=== PATIENT | female | born 1960 | race Caucasian/White ===

== ENCOUNTER 2021-04-11 09:01 | Outpatient (CLI) | payer OTHER, SELFPAY ==
--- NOTE | ~2021-04-11 | US_ITS ---
EXAMINATION: US abdomen complete DATE: 04/11/2021 10:29 INDICATION: Abdominal pain TECHNIQUE: Multiple grayscale and Doppler ultrasound images of the abdomen were obtained. COMPARISON: None available FINDINGS: The head and body of the pancreas are normal. The pancreatic tail is obscured by bowel gas. The liver is normal with normal echogenicity and echotexture. No surface nodularity. Normal hepatope santiago flow in the main portal vein. The gallbladder is normal with no abnormal wall thickening, pericho lecystic fluid or stones. The normal common bile duct measures 4 mm. There was no sonographic Batista sign. The visualized portions of the aorta and inferior vena cava are normal. The right kidney measures 10.2 x 6.1 x 4.4 cm. The left kidney measures 11.1 x 4.2 x 4.8 cm. The kidn eys demonstrate normal parenchymal echogenicity. There is no hydronephrosis. The spleen is normal in appearance and measures 9.4 cm. IMPRESSION: 1. No sonographic correlate for the patient's symptoms. Reviewed, dictated and finalized at location B.
== END 2021-04-11 09:02 | disposition home or self-care (01) ==
PROVIDERS: PCP Internal Medicine; Visit Provider Internal Medicine
DX: R10.9 Unspecified abdominal pain (principal)
CPT/HCPCS: 76700

== ENCOUNTER → 2021-04-30 09:06 | Outpatient (CLI) | payer OTHER, SELFPAY ==
--- NOTE | ~2021-04-30 | CT_ITS ---
EXAMINATION: CT abdomen pelvis wo con DATE: 04/30/2021 09:27 INDICATION: Right lower quadrant abdominal pain TECHNIQUE: Computed tomography (CT) of the abdomen and pelvis was performed without intravenous contr ast. Automated exposure control and iterative reconstruction technique were employed. Exam dose: 727 .19 mGy-cm total exam DLP. COMPARISON: 04/11/2021 complete abdominal ultrasound examination FINDINGS: There is mild discoid atelectasis or scarring in the base of the left lower lobe. No consol idation at the lung bases. Heart size is within normal range. No pericardial or pleural effusion. The liver, gallbladder, bile ducts, spleen, pancreas, pancreatic duct, and adrenal glands and kidneys are unremarkable. There is a 5.5 mm hyperdense exophytic cyst at the upper pole of the left kidney l ow-attenuation up to 94 Hounsfield units, benign. No urinary tract calculus or hydroureteronephrosis. Normal caliber of the abdominal aorta. No intraperitoneal or retroperitoneal or pelvic mass lesion or adenopathy or ascites. Diverticulosis of left and right colon; no CT evidence of diverticulitis. Normal appendix. No bowel o bstruction, bowel wall thickening, pneumatosis or intraperitoneal free air. The uterus, adnexa and evacuated urinary bladder appear unremarkable. Grade 1 anterolisthesis at L4-5 due to degenerative change at the apophyseal joints. Moderately sever e degenerative disc disease at L5-S1. Degenerative changes are noted in the thoracic and lumbar spine. IMPRESSION: Normal appendix Diverticulosis of the colon; no CT evidence of diverticulitis Reviewed, dictated and finalized at Location A. Reviewed, dictated and finalized at location A.
== END ==
PROVIDERS: PCP Internal Medicine; Visit Provider Internal Medicine
DX: R10.9 Unspecified abdominal pain (principal); K57.30 Diverticulosis of large intestine without perforation or abscess without bleeding
CPT/HCPCS: 74176

== ENCOUNTER 2021-07-08 01:17 | Day surgery (SDC) | payer OTHER, SELFPAY ==
[2021-06-27 14:28] VITALS: BMI 29.4
[2021-07-08 06:53] VITALS: BP 147/96; PULSE 57; RESP 18; TEMP 36.6; O2SAT 96
[2021-07-08 06:55] VITALS: BMI 28.5
[2021-07-08] MEDS: LACTATED RINGERS 1,000 ML 150 ML IV CONT (07:02)
--- NOTE | 2021-07-08 07:17 | WPDANESEPPF ---
Anes - Initial Pre Proc Eval Procedure: Operation Date: 07/08/21 08:15 Proposed Procedures p Colonoscopy - Zan Garland MD Date/Time: 07/08/21 07:17 Surgeon: Zan Garland MD Pre Op Diagnosis: Right abdominal pain Patient Data Age: 60 Gender: F Height: 1.57 m Weight: 70.7 kg Last Vital Signs Temp 36.6 C 07/08/21 06:53 Pulse 57 L 07/08/21 06:53 Resp 18 07/08/21 06:53 BP 147/96 H 07/08/21 06:53 Pulse Ox 96 07/08/21 06:53 Allergies Allergy/AdvReac Type Severity Reaction Status Date / Time meperidine Allergy Mild Nausea and Verified 07/08/21 06:50 Vomiting Home Medications Medication Instructions Recorded Confirmed Type atorvastatin 10 mg tablet 10 mg PO DAILY 06/14/20 07/04/21 History lactobacillus combination no.9 4 4,000 mmu cells PO DAILY 06/14/20 07/04/21 History billion cell capsule multivitamin,[id number] 1 tablet PO DAILY 06/14/20 07/04/21 History alprazolam 0.5 mg tablet 0.25 mg PO DAILY PRN 12/14/20 07/04/21 History omega-3 fatty acids 1,000 mg 1,000 mg PO DAILY 12/14/20 07/04/21 History capsule fluoxetine 20 mg capsule 20 mg PO DAILY 05/03/21 07/04/21 History pantoprazole 40 mg tablet,delayed 40 mg PO QAM #90 tablet 06/10/21 07/04/21 Rx release hydrochlorothiazide 12.5 mg tablet 12.5 mg PO DAILY #90 tablet 07/04/21 07/08/21 Rx metoprolol tartrate 50 mg tablet 25 mg PO BID #90 tablet 07/04/21 07/08/21 Rx Patient hx anesthesia problems: none Family hx anesthesia problems: none Results Review: All pre-operative results and documents have been reviewed as part of the pre-operative evaluation. [facility] Past Medical History Medical History History of Clostridioides difficile colitis Hyperlipidemia Hypertension Surgical History Surgical History History of delivery History of reduction mammoplasty Family History Family History Mother Heart disease Father , Heart and Stroke No problems noted. Grandparent Heart disease Grandparent , Black Lung No problems noted. Social History Social History (Updated 07/04/21 @ 07:04 by Leonor Wood MA) Smoking packs per day: 1 Smoking cigarettes per day: 20.0 Years smoked: 20 Smoking pack-years: 20.00 Tobacco type: cigarettes Second hand tobacco smoke exposure: Yes Smoking end date: 10/30/16 Alcohol intake: current Drinks per week: 2 Alcohol use details: Socially- wine Substance use: never Living arrangements: alone Spiritual care concerns: No Anes - Eval Final PreProcedure Day of Procedure 07/08/21 07:17 Patient weight: overweight Heart: regular rate and rhythm Lungs: clear to auscultation Airway: Mallampati scale class II Neurological: alert and oriented Last oral intake: >/= 8 hours ASA classification: III Emergent: no Anesthetic plan: proceed Anesthesia type and monitoring: general GIVS and standard monitoring Results Review: All pre-operative results and documents have been reviewed as part of the pre-operative evaluation. Informed Consent: The patient's anesthetic plan and its attendant risks and benefits were discussed with the patient/family/POA. Questions were solicited and answers provided to the satisfaction of the patient/family/POA.
--- NOTE | 2021-07-08 08:00 | PM.HPGS ---
History of Present Illness History of Present Illness Consent: Risks, benefits, and alternatives have been discussed and questions answered. Patient agrees to proceed with procedure. Chief complaint: Right abdominal pain Narrative: Miguel Chaudhari is a 60 year old female with intermittent right sided abdominal pain and loose stool, last colonoscopy 2014 Review of Systems Constitutional: Constitutional: Denies headache(s) and Denies weakness Eyes: Eyes: Denies blurry vision ENT: Reports Normal hearing present, Denies headache(s) and Denies neck pain Cardiovascular: Cardiovascular: Denies chest pain and Denies dyspnea Respiratory: Respiratory: Denies dyspnea Gastrointestinal: Gastrointestinal: Reports no additional gastrointestinal complaints Genitourinary: Genitourinary: Denies dysuria Musculoskeletal: Musculoskeletal: Denies neck pain Integumentary/Breasts: Skin/Breast: Denies dry skin Neurologic: Reports Normal hearing present, Denies headache(s) and Denies weakness Psychiatric: Psychiatric: Denies anxiety Endocrine: Endocrine: Denies change in body appearance Hematologic/Lymphatic: Hematologic/Lymphatic: Denies easy bleeding Allergic/Immunologic: Allergic/Immunologic: Denies urticaria PMFSH Past Medical History Medical History History of Clostridioides difficile colitis Hyperlipidemia Hypertension Surgical History Surgical History History of delivery History of reduction mammoplasty Family History Family History Mother Heart disease Father , Heart and Stroke No problems noted. Grandparent Heart disease Grandparent , Black Lung No problems noted. Social History Social History (Updated 07/04/21 @ 07:04 by Leonor Wood MA) Smoking packs per day: 1 Smoking cigarettes per day: 20.0 Years smoked: 20 Smoking pack-years: 20.00 Tobacco type: cigarettes Second hand tobacco smoke exposure: Yes Smoking end date: 10/30/16 Alcohol intake: current Drinks per week: 2 Alcohol use details: Socially- wine Substance use: never Living arrangements: alone Spiritual care concerns: No Meds Home Medications and Allergies Home Medications Medication Instructions Recorded Confirmed Type atorvastatin 10 mg tablet 10 mg PO DAILY 06/14/20 07/04/21 History lactobacillus combination no.9 4 4,000 mmu cells PO DAILY 06/14/20 07/04/21 History billion cell capsule multivitamin,[id number] 1 tablet PO DAILY 06/14/20 07/04/21 History alprazolam 0.5 mg tablet 0.25 mg PO DAILY PRN 12/14/20 07/04/21 History omega-3 fatty acids 1,000 mg 1,000 mg PO DAILY 12/14/20 07/04/21 History capsule fluoxetine 20 mg capsule 20 mg PO DAILY 05/03/21 07/04/21 History pantoprazole 40 mg tablet,delayed 40 mg PO QAM #90 tablet 06/10/21 07/04/21 Rx release hydrochlorothiazide 12.5 mg tablet 12.5 mg PO DAILY #90 tablet 07/04/21 07/08/21 Rx metoprolol tartrate 50 mg tablet 25 mg PO BID #90 tablet 07/04/21 07/08/21 Rx Allergies Allergy/AdvReac Type Severity Reaction Status Date / Time meperidine Allergy Mild Nausea and Verified 07/08/21 06:50 Vomiting Vital Signs Vital Signs - 24 hr 07/08/21 06:53 Temperature 97.9 F Pulse Rate 57 L Respiratory Rate 18 Blood Pressure 147/96 H Pulse Oximetry 96 Exam Const: General: comfortable and no acute distress HENMT: General nose exam: Normal nares present Eyes: General: appearance normal, both eyes and all related structures Neck: Neck: no JVD Resp: Auscultation: clear to auscultation bilaterally Cardio: Rate: regular rate Rhythm: regular rhythm GI: Inspection: non-distended GI Palp: Yes Soft to palpation Skin: General skin exam: normal color Neuro: General: gait normal Speech: normal
[2021-07-08 08:28] VITALS: BP 98/65; PULSE 51; RESP 15; O2SAT 96
[2021-07-08 08:38] VITALS: BP 128/88; PULSE 47; RESP 18; O2SAT 98
[2021-07-08 08:48] VITALS: BP 139/99; PULSE 56; RESP 23; O2SAT 94
== END 2021-07-08 09:02 | disposition home or self-care (01) ==
PROVIDERS: PCP Internal Medicine; Visit Provider Internal Medicine Gastroenterology
PROC: 0DJD8ZZ Inspection of Lower Intestinal Tract, Via Natural or Artificial Opening Endoscopic (ICD-10-PCS; CPT 45378; principal; 2021-07-08 08:15)
DX: R10.31 Right lower quadrant pain (principal); K57.30 Diverticulosis of large intestine without perforation or abscess without bleeding; D12.3 Benign neoplasm of transverse colon; K63.5 Polyp of colon; K64.8 Other hemorrhoids; Z87.19 Personal history of other diseases of the digestive system; I10 Essential (primary) hypertension; E78.5 Hyperlipidemia, unspecified; Z87.891 Personal history of nicotine dependence
CPT/HCPCS: 45385; 45380; 88305; J2704; J7120

== ENCOUNTER 2022-01-24 08:27 | Outpatient (CLI) | payer BC, SELFPAY ==
--- NOTE | 2022-01-24 08:42 | EST_ITS ---
Patient Info Name: Miguel Chaudhari Age: 61 years : 1960 Gender: Female Ht: 62 in Wt: 160 lbs BSA: 1.81 m2 HR: 55 bpm BP: 122 / 80 mmHg Technical Quality: Good Exam Date: 01/24/2022 9:19 AM Exam Location: [facility] Patient Status: Outpatient Admit Date: 01/24/2022 Staff Ordering Physician: Basim Yip DO Energy Sales Broker: Sagrario Turcios RCS Attending Provider: Basim Yip DO Exercise Technologist: Jenniffer Franklin RDCS Exam Type: CA stress echo Study Info Indications R07.89 - Other chest pain Treadmill exercise stress echocardiogram is performed. Summary 1. 1. Negative Binh exercise stress test for ischemic ST changes by ECG criteria. 2. 2. Good functional capacity, achieving 11 METs of workload. 3. 3. Appropriate HR response to exercise. 4. 4. Appropriate HR recovery at 1 minute post exercise. 5. 5. Negative stress echocardiogram for ischemia by wall motion analysis. 6. 6. Patient informed of the above results. Stress Echo Findings Left Ventricle Appropriate increase in LV endocardial thickening with systole. Appropriate augmentation of contractility with systole. No wall motion abnormality. Left Ventricle Normal LV systolic function, no wall motion abnormality. Protocol: Binh Stress ECG Details Stage: REST Duration (min): 1 min : 23 sec Speed (mph): 0.0 Grade (%): 0 HR (bpm): 55 SBP (mmHg): 122 DBP (mmHg): 80 METS: --- Stage: REST Duration (min): 17 min : 39 sec Speed (mph): 0.0 Grade (%): 0 HR (bpm): 58 SBP (mmHg): 122 DBP (mmHg): 80 METS: --- Stage: STAGE 1 Duration (min): 1 min : 0 sec Speed (mph): 1.7 Grade (%): 10 HR (bpm): 85 SBP (mmHg): 122 DBP (mmHg): 80 METS: --- Stage: STAGE 1 Duration (min): 2 min : 0 sec Speed (mph): 1.7 Grade (%): 10 HR (bpm): 94 SBP (mmHg): 122 DBP (mmHg): 80 METS: --- Stage: STAGE 1 Duration (min): 3 min : 0 sec Speed (mph): 1.7 Grade (%): 10 HR (bpm): 96 SBP (mmHg): 157 DBP (mmHg): 74 METS: --- Stage: STAGE 2 Duration (min): 1 min : 0 sec Speed (mph): 2.5 Grade (%): 12 HR (bpm): 95 SBP (mmHg): 157 DBP (mmHg): 74 METS: --- Stage: STAGE 2 Duration (min): 2 min : 0 sec Speed (mph): 2.5 Grade (%): 12 HR (bpm): 92 SBP (mmHg): 157 DBP (mmHg): 74 METS: --- Stage: STAGE 2 Duration (min): 3 min : 0 sec Speed (mph): 2.5 Grade (%): 12 HR (bpm): 103 SBP (mmHg): 184 DBP (mmHg): 79 METS: --- Stage: STAGE 3 Duration (min): 1 min : 0 sec Speed (mph): 3.4 Grade (%): 14 HR (bpm): 114 SBP (mmHg): 133 DBP (mmHg): 81 METS: --- Stage: STAGE 3 Duration (min): 2 min : 0 sec Speed (mph): 3.4 Grade (%): 14 HR (bpm): 116 SBP (mmHg): 133 DBP (mmHg): 81 METS: --- Stage: STAGE 3 Duration (min): 3 min : 0 sec Speed (mph): 3.4 Grade (%): 14 HR (bpm): 116
== END 2022-01-24 08:28 | disposition home or self-care (01) ==
PROVIDERS: PCP Internal Medicine; Visit Provider Internal Medicine
DX: R07.9 Chest pain, unspecified (principal); R68.84 Jaw pain
CPT/HCPCS: 93351

== ENCOUNTER 2022-02-05 05:37 | Outpatient (CLI) | payer BC, SELFPAY ==
--- NOTE | 2022-02-10 16:03 | WPDHOMESLEEP ---
Sleep Study - Home Unattended Date of Study: 02/05/22 Ordering Provider: Basim Yip DO Interpreting Provider: Ina Valdez DO Home Sleep Study Type: Apnea Link Air Height: 1.57 m Weight: 72.575 kg Body Mass Index: 29.2 Neck Circumference (inches): 14 [place]: 10 Reason for Sleep Study Snoring, Multiple nighttime awakenings Sleep History The patient is a 61-year-old female with IBS, GERD, hypertension, hyperlipidemia, stress, and history of tobacco abuse that had a sleep study ordered by her primary care for evaluation of sleep apnea. 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 She occasionally awakens from sleep short of breath. She occasionally awakens at night with heartburn, belching or cough. She constantly snores and it is frequently loud enough that others complain. She frequently has trouble sleeping when she has a cold. She rarely wakes up gasping for air throughout the night. She denies having breathing problems at night observed by herself or others. She occasionally sweats excessively at night. She occasionally has heart palpitations or irregular heartbeats during the night. She denies falling asleep during the day and while driving. She denies cataplexy and hypnagogic / hypnopompic hallucinations. She rarely feels unable to move while waking up or falling asleep. She frequently has nightmares. She frequently remembers her dreams. She frequently has thoughts racing through her mind. She rarely feels sad or depressed. She occasionally has anxiety. She rarely has muscular tension. She occasionally notices parts of her body jerk. She occasionally kicks during the night. She occasionally has crawling and aching feelings in her legs as well as leg pain during the night. She frequently grinds her teeth during sleep. She rarely is bothered by pain during the day and rarely awakened by pain during the night. She occasionally wakes up feeling stiff in the morning. She occasionally wakes up with sore or achy muscles. She occasionally wakes up with pain in the neck, spine and other joints. She goes to bed at 11:00 p.m. on weekdays and at midnight and awakens. It takes her 15-30 minutes to fall asleep. She wakes up 2-3 times throughout the night to urinate. She is able to fall back asleep within 5-10 minutes. She wakes up between 7 and 7:30 a.m. on weekdays and between 9 and 10:00 a.m. on the weekends. She typically gets 8-12 hours of sleep per. She will stay in bed for 5-10 minutes after waking up in the morning. She currently lives alone. She does not consume any caffeinated beverages within 2 hours of bedtime. She does not engage in physical exercise before bedtime. She will watch television before falling asleep. She will take naps in the afternoon or the evening but they are not refreshing. She will drink caffeinated beverages throughout the day. She does drink alcohol socially. She quit smoking cigarettes in 2017. She denies recreational drug use. [facility] Past Medical History Medical History History of Clostridioides difficile colitis Hyperlipidemia Hypertension Surgical History Surgical History History of delivery History of reduction mammoplasty Family History Family History Mother Heart disease Father , Heart and Stroke No problems noted. Grandparent Heart disease Grandparent , Black Lung No problems noted. Social History Social History Smoking packs per day: 1 Smoking cigarettes per day: 20.0 Years smoked: 20 Smoking pack-years: 20.00 Smoking status: Former smoker Tobacco type: cigarettes Second hand tobacco smoke exposure: No Smoking end date: 10/30/16 Alcohol intake: former
[2022-02-10 16:14] VITALS: BMI 29.2
== END 2022-02-06 13:08 | disposition home or self-care (01) ==
LOC: ANHCSM 05:37
PROVIDERS: PCP Internal Medicine; Visit Provider Internal Medicine
DX: G47.39 Other sleep apnea (principal)
CPT/HCPCS: 95806

== ENCOUNTER 2022-02-28 07:48 | Outpatient (CLI) | payer BC, SELFPAY ==
--- NOTE | 2022-03-11 08:55 | WPDSLEEPSTUD ---
Sleep Study Date of Study: 02/28/22 Ordering Provider: Basim Yip DO Interpreting Physician: Ai Vargas MD Sleep Study Type: CPAP Titration Height: 1.57 m Weight: 72.575 kg Body Mass Index: 29.2 Neck Circumference (inches): 14.5 [place]: 10 Reason for Sleep Study 02/05/2022 Home Sleep Test using ApneaLink with an overall AHI of 33.6 and a central apnea index of 11.5.? This is consistent with severe mixed sleep apnea. Sleep History Miguel Chaudhari is a 61-year-old female with IBS, GERD, hypertension, hyperlipidemia, stress, and history of tobacco abuse with a positive home sleep test who returns for a CPAP titration. She occasionally awakens from sleep short of breath.? She occasionally awakens at night with heartburn, belching or cough.? She constantly snores, frequently loud enough that others complain.? She frequently has trouble sleeping when she has a cold.? She rarely wakes up gasping for air throughout the night.? She denies having breathing problems at night observed by herself or others.? She occasionally sweats excessively at night.? She occasionally has heart palpitations or irregular heartbeats during the night.? She denies falling asleep during the day and while driving.? She denies muscle weakness with strong emotion or vivid dreams on waking or falling asleep. She does not feel paralyzed on waking or falling asleep.? She frequently has nightmares.? She frequently remembers her dreams.? She frequently has thoughts racing through her mind.? She rarely feels sad orpressed.? She occasionally has anxiety.? She rarely has muscular tension.??She occasionally notices parts of her body jerk.? She occasionally kicks during the night.? She occasionally has crawling and aching feelings in her legs as well as leg pain during the night.? She frequently grinds her teeth during sleep.? She rarely is bothered by pain during the day and rarely awakened by pain during the night.? She occasionally wakes up feeling stiff in the morning.? She occasionally wakes up with sore or achy muscles.? She occasionally wakes up with pain in the neck, spine and other joints.? Normal bedtime is 11:00 p.m. on weekdays and midnight, falling asleep within 15-30 minutes, waking 2-3 times throughout the night to urinate.? She is able to return to sleep within 5-10 minutes.? She wakes up between 7 and 7:30 a.m. on weekdays and between 9 and 10:00 a.m. on the weekends.? She typically gets 8-12 hours of sleep on an average night. She takes naps in the afternoon or the evening but they are not refreshing.? Habits: Former smoker, quit tobacco in 2017. Caffeine: several drinks throughout the day.? She does drink alcohol socially.? She denies recreational drug use. [facility] Past Medical History Medical History History of Clostridioides difficile colitis Hyperlipidemia Hypertension Surgical History Surgical History History of delivery History of reduction mammoplasty Family History Family History Mother Heart disease Father , Heart and Stroke No problems noted. Grandparent Heart disease Grandparent , Black Lung No problems noted. Social History Social History Smoking packs per day: 1 Smoking cigarettes per day: 20.0 Years smoked: 20 Smoking pack-years: 20.00 Smoking status: Former smoker Tobacco type: cigarettes Second hand tobacco smoke exposure: No Smoking end date: 10/30/16 Alcohol intake: current Drinks per week: 4 Alcohol use details: Socially- wine Substance use: former Substance use type: marijuana Last use: 6 MONTHS Spiritual care concerns: No Medications Home Medications Medication Instructions Recorded Confirmed Type lac
[2022-03-11 11:39] VITALS: BMI 29.2
--- NOTE | 2022-09-11 16:53 | SLEEP ---
pt is having issues w machine and RLS
== END 2022-03-01 06:14 | disposition home or self-care (01) ==
LOC: ANHCSM 07:49
PROVIDERS: PCP Internal Medicine; Visit Provider Internal Medicine
DX: G47.39 Other sleep apnea (principal); G25.81 Restless legs syndrome; G47.61 Periodic limb movement disorder
CPT/HCPCS: 95811

== ENCOUNTER 2022-03-14 13:42 | Outpatient (CLI) | payer BC, SELFPAY ==
--- NOTE | 2022-03-14 13:54 | ECHO_ITS ---
Patient Info Name: Miguel Chaudhari Age: 61 years : 1960 Gender: Female Ht: 62 in Wt: 160 lbs BSA: 1.81 m2 HR: 53 bpm BP: 168 / 104 mmHg Heart Rhythm: Sinus Rhythm Technical Quality: Good Exam Date: 03/14/2022 2:04 PM Exam Location: [facility] Patient Status: Outpatient Admit Date: 03/14/2022 Staff Ordering Physician: Basim Yip DO Non Destructive Evaluation Manager: Pauline Bhakta RDCS Attending Provider: Basim Yip DO Referring Physician: Theodora BENAVIDES; Exam Type: CA echo doppler color flow Study Info Indications G47.31 - PRIMARY CENTRAL SLEEP APNEA Complete two-dimensional, color flow and Doppler transthoracic echocardiogram is performed. Summary 1. Complete two-dimensional, color flow and Doppler transthoracic echocardiogram is performed. 2. Left ventricular chamber dimension is normal. 3. Left ventricular systolic function is normal, estimated at 60-65%. 4. The left ventricular diastolic function is grade II diastolic dysfunction. 5. E/e' 13 is mildly elevated. Left Ventricle E/e' 13 is mildly elevated. Left ventricular chamber dimension is normal. Left ventricular systolic function is normal, estimated at 60-65%. The left ventricular diastolic function is grade II diastolic dysfunction. Right Ventricle Right ventricular chamber dimension is normal. Right ventricular systolic function is normal. Left Atria Left atrial chamber dimension is normal. Right Atria Right atrial chamber dimension is normal. Aortic Valve The aortic valve is trileaflet. There is no aortic valve stenosis. There is no aortic valve regurgitation. Pulmonic Valve There is no pulmonic regurgitation. Mitral Valve There is no mitral valve stenosis. There is no mitral valve regurgitation. Tricuspid Valve There is no tricuspid valve regurgitation. Pericardium/Pleural There is no pericardial effusion. Inferior Vena Cava Normal inferior vena cava with >50% collapse upon inspiration consistent with normal right atrial pressure, 5 mmHg. Aorta The aortic root size at the sinus of Valsalva is normal. Left Ventricular Outflow Tract Name Value Normal LVOT 2D LVOT Diameter 1.6 cm LVOT Doppler LVOT Peak Gradient 3 mmHg LVOT Mean Gradient 2 mmHg LVOT VTI 24 cm LVOT VTI/AV VTI Ratio 0.7 LVOT Stroke Volume 50 ml LVOT CO 2.5 l/min LVOT CI 1.4 l/min/m2 Pulmonic Valve Name Value Normal RVOT Doppler RVOT Peak Gradient 1 mmHg PV Doppler PV Peak Gradient 2 mmHg Mitral Valve
== END 2022-03-14 13:43 | disposition home or self-care (01) ==
LOC: ANHCARD 13:43
PROVIDERS: PCP Internal Medicine; Visit Provider Internal Medicine
DX: G47.31 Primary central sleep apnea (principal)
CPT/HCPCS: 93306

== ENCOUNTER 2022-06-06 00:25 | Day surgery (SDC) | payer BC, SELFPAY ==
[2022-02-17 15:34] VITALS: BMI 28.4
[2022-05-22 14:22] VITALS: BMI 28.4
[2022-06-06 07:28] VITALS: BP 154/88; PULSE 56; RESP 18; TEMP 36.2; O2SAT 98; BMI 27.5
[2022-06-06] MEDS: LACTATED RINGERS 1,000 ML 150 ML IV CONT (07:50)
--- NOTE | 2022-06-06 08:25 | WPDANESEPPF ---
Anes - Initial Pre Proc Eval Procedure: Operation Date: 06/06/22 09:00 Proposed Procedures p Esophagogastroduodenoscopy - Zan Garland MD Date/Time: 06/06/22 08:25 Surgeon: Zan Garland MD Pre Op Diagnosis: GERD Patient Data Age: 61 Gender: F Height: 1.6 m Weight: 70.4 kg Last Vital Signs Temp 97.2 F L 06/06/22 07:28 Pulse 56 L 06/06/22 07:28 Resp 18 06/06/22 07:28 BP 154/88 H 06/06/22 07:28 Pulse Ox 98 06/06/22 07:28 O2 Del Method Room Air 06/06/22 07:28 Allergies Allergy/AdvReac Type Severity Reaction Status Date / Time meperidine Allergy Mild Nausea and Verified 06/06/22 07:40 Vomiting Home Medications Medication Instructions Recorded Confirmed Type lactobacillus combination no.9 4 4,000 mmu cells PO DAILY 06/14/20 06/06/22 History billion cell capsule (Adult 50 Plus Probiotic) multivitamin,[id number]-[id number] 1 tablet PO DAILY 06/14/20 06/06/22 History (Complete Multivitamin tablet) alprazolam 0.5 mg tablet 0.25 mg PO DAILY PRN Anxiety 12/14/20 06/06/22 History omega-3 fatty acids 1,000 mg 1,000 mg PO DAILY 12/14/20 06/06/22 History capsule (Fish Oil Concentrate) atorvastatin 10 mg tablet 10 mg PO DAILY #90 tabs 12/20/21 06/06/22 Rx metoprolol tartrate 50 mg tablet 25 mg PO BID #90 tabs 02/04/22 06/06/22 Rx (Lopressor) fluoxetine 20 mg capsule (Prozac) 20 mg PO DAILY #90 caps 03/03/22 06/06/22 Rx pantoprazole 40 mg tablet,delayed 40 mg PO QAM #90 tabs 04/21/22 06/06/22 Rx release ropinirole 0.5 mg tablet 0.5 mg PO QHS #30 tabs 05/26/22 06/06/22 Rx Patient hx anesthesia problems: none Family hx anesthesia problems: none Results Review: All pre-operative results and documents have been reviewed as part of the pre-operative evaluation. [facility] Past Medical History Medical History History of Clostridioides difficile colitis Hyperlipidemia Hypertension Surgical History Surgical History History of delivery History of reduction mammoplasty Family History Family History Mother Heart disease Father , Heart and Stroke No problems noted. Grandparent Heart disease Grandparent , Black Lung No problems noted. Social History Social History Smoking packs per day: 1 Smoking cigarettes per day: 20.0 Years smoked: 20 Smoking pack-years: 20.00 Smoking status: Former smoker Tobacco type: cigarettes Second hand tobacco smoke exposure: No Smoking end date: 10/30/16 Alcohol intake: current Drinks per week: 4 Alcohol use details: Socially- wine Substance use: former Substance use type: marijuana Last use: 6 MONTHS Living arrangements: alone Spiritual care concerns: No Anes - Eval Final PreProcedure Day of Procedure 06/06/22 08:25 Patient weight: normal Heart: regular rate and rhythm Lungs: clear to auscultation Airway: Mallampati scale class II Neurological: alert and oriented Last oral intake: >/= 8 hours ASA classification: III Emergent: no Anesthetic plan: proceed Anesthesia type and monitoring: general GIVS and standard monitoring Results Review: All pre-operative results and documents have been reviewed as part of the pre-operative evaluation. Informed Consent: The patient's anesthetic plan and its attendant risks and benefits were discussed with the patient/family/POA. Questions were solicited and answers provided to the satisfaction of the patient/family/POA.
--- NOTE | 2022-06-06 08:42 | PM.HPGS ---
History of Present Illness History of Present Illness Consent: Risks, benefits, and alternatives have been discussed and questions answered. Patient agrees to proceed with procedure. Chief complaint: GERD Narrative: Miguel Chaudhari is a 61 year old female with chronic GERD on pantoprazole that helps with symptoms, last egd over 10 years ago Review of Systems Constitutional: Constitutional: Denies headache(s) and Denies weakness Eyes: Eyes: Denies blurry vision ENT: Reports Normal hearing present, Denies headache(s) and Denies neck pain Cardiovascular: Cardiovascular: Denies chest pain and Denies dyspnea Respiratory: Respiratory: Denies dyspnea Gastrointestinal: Gastrointestinal: Reports no additional gastrointestinal complaints Genitourinary: Genitourinary: Denies dysuria Musculoskeletal: Musculoskeletal: Denies neck pain Integumentary/Breasts: Skin/Breast: Denies dry skin Neurologic: Reports Normal hearing present, Denies headache(s) and Denies weakness Psychiatric: Psychiatric: Denies anxiety Endocrine: Endocrine: Denies change in body appearance Hematologic/Lymphatic: Hematologic/Lymphatic: Denies easy bleeding Allergic/Immunologic: Allergic/Immunologic: Denies urticaria PMFSH Past Medical History Medical History History of Clostridioides difficile colitis Hyperlipidemia Hypertension Surgical History Surgical History History of delivery History of reduction mammoplasty Family History Family History Mother Heart disease Father , Heart and Stroke No problems noted. Grandparent Heart disease Grandparent , Black Lung No problems noted. Social History Social History Smoking packs per day: 1 Smoking cigarettes per day: 20.0 Years smoked: 20 Smoking pack-years: 20.00 Smoking status: Former smoker Tobacco type: cigarettes Second hand tobacco smoke exposure: No Smoking end date: 10/30/16 Alcohol intake: current Drinks per week: 4 Alcohol use details: Socially- wine Substance use: former Substance use type: marijuana Last use: 6 MONTHS Living arrangements: alone Spiritual care concerns: No Meds Home Medications and Allergies Home Medications Medication Instructions Recorded Confirmed Type lactobacillus combination no.9 4 4,000 mmu cells PO DAILY 06/14/20 06/06/22 History billion cell capsule (Adult 50 Plus Probiotic) multivitamin,xx-erur-xhiojfiw 1 tablet PO DAILY 06/14/20 06/06/22 History (Complete Multivitamin tablet) alprazolam 0.5 mg tablet 0.25 mg PO DAILY PRN Anxiety 12/14/20 06/06/22 History omega-3 fatty acids 1,000 mg 1,000 mg PO DAILY 12/14/20 06/06/22 History capsule (Fish Oil Concentrate) atorvastatin 10 mg tablet 10 mg PO DAILY #90 tabs 12/20/21 06/06/22 Rx metoprolol tartrate 50 mg tablet 25 mg PO BID #90 tabs 02/04/22 06/06/22 Rx (Lopressor) fluoxetine 20 mg capsule (Prozac) 20 mg PO DAILY #90 caps 03/03/22 06/06/22 Rx pantoprazole 40 mg tablet,delayed 40 mg PO QAM #90 tabs 04/21/22 06/06/22 Rx release ropinirole 0.5 mg tablet 0.5 mg PO QHS #30 tabs 05/26/22 06/06/22 Rx Allergies Allergy/AdvReac Type Severity Reaction Status Date / Time meperidine Allergy Mild Nausea and Verified 06/06/22 07:40 Vomiting Vital Signs Vital Signs - 24 hr 06/06/22 07:28 Temperature 97.2 F L Pulse Rate 56 L Respiratory Rate 18 Blood Pressure 154/88 H Pulse Oximetry 98 Oxygen Delivery Room Air Exam Const: General: comfortable and no acute distress HENMT: General nose exam: Normal nares present Eyes: General: appearance normal, both eyes and all related structures Neck: Neck: no JVD Resp: Auscultation: clear to a
[2022-06-06 09:01] VITALS: BP 118/84; PULSE 62; RESP 15; O2SAT 93
[2022-06-06 09:11] VITALS: BP 125/87; PULSE 60; RESP 18; O2SAT 92
[2022-06-06 09:21] VITALS: BP 147/84; PULSE 61; RESP 22; O2SAT 94
== END 2022-06-06 09:29 | disposition home or self-care (01) ==
PROVIDERS: PCP Internal Medicine; Visit Provider Internal Medicine Gastroenterology
PROC: 0DJ08ZZ Inspection of Upper Intestinal Tract, Via Natural or Artificial Opening Endoscopic (ICD-10-PCS; CPT 43235; principal; 2022-06-06 09:00)
DX: K21.9 Gastro-esophageal reflux disease without esophagitis (principal); R07.89 Other chest pain; K29.50 Unspecified chronic gastritis without bleeding; I10 Essential (primary) hypertension; E78.5 Hyperlipidemia, unspecified; Z87.891 Personal history of nicotine dependence; F12.90 Cannabis use, unspecified, uncomplicated
CPT/HCPCS: 43239; 88305; J2704; J7120

== ENCOUNTER 2022-08-05 16:56 | Outpatient (CLI) | payer BC, SELFPAY ==
--- NOTE | ~2022-08-05 | XR_ITS ---
XR humerus RT DATE: 08/05/2022 17:14 INDICATION: Right arm pain for 5 days TECHNIQUE: 2 views COMPARISON: None FINDINGS: No fracture, dislocation, periosteal reaction or bone destruction. IMPRESSION: Negative Reviewed, dictated and finalized at location A. IMPRESSION: Negative
--- NOTE | ~2022-08-05 | XR_ITS ---
XR shoulder RT min 2V DATE: 08/05/2022 17:13 INDICATION: Right shoulder pain for 5 days TECHNIQUE: 5 views COMPARISON: None FINDINGS: No fracture or dislocation, periosteal reaction or bone destruction. No abnormal right shou lder soft tissue calcification. Prominent uncovertebral joint spurring is noted at the right C5-6 uncovertebral joint. IMPRESSION: Prominent uncovertebral joint spurring at right C5-6 uncovertebral joint Reviewed, dictated and finalized at location A.
== END 2022-08-05 16:57 | disposition home or self-care (01) ==
LOC: ANHIMG 16:58
PROVIDERS: PCP Internal Medicine; Visit Provider Internal Medicine
DX: M79.603 Pain in arm, unspecified (principal); M25.519 Pain in unspecified shoulder
CPT/HCPCS: 73030; 73060

== ENCOUNTER → 2023-10-29 09:36 | Outpatient (CLI) | payer BC, SELFPAY ==
--- NOTE | ~2023-10-29 | XR_ITS ---
EXAMINATION: XR shoulder LT min 2V DATE: 10/29/2023 10:07 INDICATION: Unspecified fall, initial encounter. TECHNIQUE: 4 views of left shoulder were obtained. COMPARISON: None. FINDINGS: Bone alignment is normal. There is a nondisplaced fracture of greater tuberosity of proxima l left humerus. There is mild osteoarthritis of glenohumeral joint and acromioclavicular joint. IMPRESSION: 1. One-part fracture of proximal left humerus. 2. Mild polyarticular osteoarthritis. Reviewed, dictated and finalized at location [facility]
--- NOTE | ~2023-10-29 | XR_ITS ---
EXAMINATION: XR humerus LT DATE: 10/29/2023 10:07 INDICATION: Unspecified fall, initial encounter. TECHNIQUE: 2 views of left humerus were obtained. COMPARISON: None. FINDINGS: There is a nondisplaced fracture of greater tuberosity of proximal left humerus. There is m ild osteoarthritis of glenohumeral joint and acromioclavicular joint. IMPRESSION: 1. One-part fracture of proximal left humerus. 2. Mild polyarticular osteoarthritis. Reviewed, dictated and finalized at location E. [employer]
== END ==
PROVIDERS: PCP Nurse Practitioner; Visit Provider Nurse Practitioner
DX: M19.012 Primary osteoarthritis, left shoulder (principal); M19.022 Primary osteoarthritis, left elbow
CPT/HCPCS: 73030; 73060

== ENCOUNTER 2023-10-29 10:42 | Emergency (ER) | payer BC, SELFPAY ==
[2023-10-29 11:00] VITALS: BP 171/95; PULSE 56; RESP 16; TEMP 37.3; O2SAT 98
--- NOTE | 2023-10-29 12:30 | ED.GENADULT ---
HPI - General Adult General Chief complaint: Extremity Injury, Upper Stated complaint: fall, broken humerus Time Seen by Provider: 10/29/23 12:25 History of Present Illness HPI narrative: Patient is a 62-year-old female who presents to the emergency department today after she was sent in from urgent care after an outpatient x-ray of her left arm revealed a nondisplaced fracture of the greater tuberosity of the proximal left humerus. Patient admits that she did fall and land on her left shoulder this past Thursday. Patient was able to get back up after the fall and was ambulatory and denies hitting her head denies any loss of consciousness. Patient denies any symptoms at this time include chest pain, shortness of breath, nausea, vomiting, abdominal pain, dysuria, hematuria, constipation, diarrhea, melena, hematochezia, fevers or chills. Patient also denies any headaches, dizziness, lightheadedness, blurry visions, focal weakness, numbness and or tingling. There are no other modifying, alleviating, or precipitating factors at this time. Related Data Home Medications Medication Instructions Recorded Confirmed lactobacillus combination no.9 4 4,000 mmu cells PO DAILY 06/14/20 10/16/23 billion cell capsule (Adult 50 Plus Probiotic) multivitamin,rr-njyn-wzglnmze 1 tablet PO DAILY 06/14/20 10/16/23 (Complete Multivitamin tablet) alprazolam 0.5 mg tablet 0.25 mg PO DAILY PRN Anxiety 12/14/20 10/16/23 omega-3 fatty acids 1,000 mg 1,000 mg PO DAILY 12/14/20 10/16/23 capsule (Fish Oil Concentrate) ziidra .Route 09/25/22 10/16/23 Allergies Allergy/AdvReac Type Severity Reaction Status Date / Time meperidine Allergy Mild Nausea and Verified 10/29/23 09:08 Vomiting Review of Systems Review of Systems: All systems are reviewed and are negative unless stated otherwise in the HPI. [facility] Past Medical History Medical History History of Clostridioides difficile colitis Hyperlipidemia Hypertension Mixed sleep apnea Surgical History Surgical History History of delivery History of reduction mammoplasty Family History Family History Mother Heart disease Father , Heart and Stroke No problems noted. Grandparent Heart disease Grandparent , Black Lung No problems noted. Social History Social History Smoking packs per day: 1 Smoking cigarettes per day: 20.0 Years smoked: 20 Smoking pack-years: 20.00 Smoking status: Former smoker Tobacco type: cigarettes Second hand tobacco smoke exposure: No Smoking end date: 10/30/16 Alcohol intake: current Drinks per week: 12 Alcohol use details: Socially- wine Substance use: former Substance use type: marijuana Last use: 6 MONTHS Lack of Transportation: No Lack of Food: Never True Current Housing: I Have Housing Concerned About Future Housing: No Difficulty Paying Gas/Electric Bills: No Difficulty Paying for Meds: No Currently Unemployed: No Education: Master's Degree or Higher Difficulty w/ Childcare or Family Care: No Living arrangements: alone Spiritual care concerns: No Exam Narrative: General: Alert, awake, afebrile, in no acute distress. HEENT: PERRL, no rhinorrhea, no post nasal drip, oropharynx clear. Neck: Trachea midline, no JVD, no lymphadenopathy. Cardiovascular: Regular rate and rhythm, no murmurs, rubs or gallops, no peripheral edema. Respiratory: Clear to auscultation bilaterally, no tachypnea, no wheezing, no rhonchi, no rubs, no respiratory distress. Abdomen: Soft, nontender, nondistended, no rebound, no guarding, no peritoneal signs. Musculoskeletal: Left upper extremity held in adduction with range of motion limited a
[2023-10-29] MEDS: HYDROcodone/acetaminophen (*CRX) 5-325 MG TABLET 1 TAB PO (13:33)
== END 2023-10-29 13:39 | disposition home or self-care (01) ==
LOC: ANHED 13:37
PROVIDERS: Emergency Provider Emergency Medicine; PCP Nurse Practitioner
DX: S42.255A Nondisplaced fracture of greater tuberosity of left humerus, initial encounter for closed fracture (principal); E78.5 Hyperlipidemia, unspecified; I10 Essential (primary) hypertension; G47.39 Other sleep apnea; Z87.891 Personal history of nicotine dependence; W18.30XA Fall on same level, unspecified, initial encounter
CPT/HCPCS: 99284; A9270

== ENCOUNTER 2024-11-30 16:16 | Outpatient (CLI) | payer BC, SELFPAY ==
--- NOTE | ~2024-11-30 | XR_ITS ---
EXAMINATION: XR ankle LT 2V DATE: 11/30/2024 16:40 INDICATION: Unspecified injury of left ankle, initial encounter. TECHNIQUE: 2 views of left ankle were obtained. COMPARISON: None. FINDINGS: There is a nondisplaced oblique fracture of base of fifth metatarsal. Joint spaces are norm al. There is an enthesophyte of posterior aspect of calcaneal tuberosity. IMPRESSION: 1. Nondisplaced oblique fracture of base of fifth metatarsal. Reviewed, dictated and finalized at location A. [employer]
== END 2024-11-30 16:17 | disposition home or self-care (01) ==
LOC: MICIMG 16:19
PROVIDERS: PCP Nurse Practitioner; Visit Provider Nurse Practitioner
DX: S92.355A Nondisplaced fracture of fifth metatarsal bone, left foot, initial encounter for closed fracture (principal); X58.XXXA Exposure to other specified factors, initial encounter
CPT/HCPCS: 73600

== ENCOUNTER 2025-01-09 11:51 | Outpatient (CLI) | payer BC, SELFPAY ==
--- NOTE | ~2025-01-09 | US_ITS ---
Limited Abdominal Sonogram: Real-time sonographic imaging of the right upper quadrant was performed. Clinical History: Right upper quadrant pain Findings: The liver appears heterogeneous, with no evidence of mass lesion or bile duct dilatation. Main portal vein demonstrates normal direction of flow. The gallbladder is well distended, and appear s normal with no evidence of gallstone or wall thickening. The common bile duct measures 4 mm. The v isualized pancreas, aorta, and IVC are unremarkable. Impression: Possible diffuse fatty infiltration of the liver. Reviewed, dictated and finalized at location M. Impression: Possible diffuse fatty infiltration of the liver.
== END 2025-01-09 11:52 | disposition home or self-care (01) ==
PROVIDERS: PCP Nurse Practitioner; Visit Provider Nurse Practitioner
DX: R10.11 Right upper quadrant pain (principal)
CPT/HCPCS: 76705

== ENCOUNTER 2025-02-01 08:15 | Outpatient (CLI) | payer BC, SELFPAY ==
--- NOTE | ~2025-02-01 | NM_ITS ---
History: Right upper quadrant pain Interpretation: Following intravenous administration of 4.6 mCi. of technetium 99 Choletec, serial im ages obtained reveal prompt concentration by the liver which is normal in size and without any focal abnormalities. There is normal excretion from the liver. The gallbladder and small bowel are visual ized by 60 minutes. At 60 minutes the patient intravenously received 0.02 mcg/kg of CCK and 30 cc normal saline delivered by palm over 60 minutes. The patient was imaged for approximately the next 40 minutes. Regions of in terest were drawn about the gallbladder and background and gallbladder ejection fraction calculated. The gallbladder ejection fraction measures 75%. ( GBEF will measure > or = 49%, in 95% of normals. GBEF will measure > or= 38% in 99% of normals ) Impression: Normal hepatobiliary scan. No evidence of cystic duct or common bile duct obstruction. This effecti vely excludes acute cholecystitis. Normal gallbladder ejection fraction of 75%. Manny et al.,Sincalide-Stimulated Cholescintigraphy: A Multicenter Investigation to Determine Opti mal Infusion Methodology and Gallbladder Ejection Fraction Normal Values. JNM. Vol 51. No.2. Nov 2009 . Reviewed, dictated and finalized at location . Impression: Normal hepatobiliary scan. No evidence of cystic duct or common bile duct obst ruction. This effectively excludes acute cholecystitis. Normal gallbladder ejection fraction of 75%. Manny et al.,Sincalide-Stimulated Cholescintigraphy: A Multicenter Investiga tion to Determine Optimal Infusion Methodology and Gallbladder Ejection Fractio n Normal Values. JNM. Vol 51. No.2. Nov 2009.
--- OUTSIDE RECORDS SUMMARY | 2025-02-01 08:34 | XMS_ITS | Encounter Summary ---
Author Organization [employer] Address [address] [place] [address] Care Team Providers Care Lube Worker Name Role Phone Basim Yip DO Primary Care Provider [phone] Encounter Details Date Type Department Care Team (Latest Contact Info) Description 06/20/2005 Outpatient Historical [facility] Kris Galeas MD [address] [place], [place] [id number] SCREENING MAMM-MAILG NEOPL NEC (Primary Dx) Social History Tobacco Use Types Packs/Day Years Used Date Smoking Tobacco: Never Assessed Comments Unknown Sex and Gender Information Value Date Recorded Sex Assigned at Female 07/02/2024 9:51 AM CDT Legal Sex Female 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 Gender Identity Female 07/02/2024 9:51 AM CDT Sexual Orientation Asexual 07/02/2024 9: 51 AM CDT documented as of this encounter Plan of Treatment Not on file documented as of this encounter Visit Diagnoses Diagnosis Other screening mammogram- Primary documented in this encounter Additional Health Concerns Infection Onset Date Last Indicated Resolved Time C Diff 05/03/2018 05/03/2018 02/25/2023 1:00 AM CDT documented as of this encounter Care Teams Lube Worker Relationship Specialty Start Date End Date Basim Yip DO [address] [facility] [address] [place] [address] PCP - General Internal Medicine 01/09/22 documented as of this encounter
--- OUTSIDE RECORDS SUMMARY | 2025-02-01 08:34 | XMS_ITS | Encounter Summary ---
Author Organization [facility] [place] [facility] Address 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 - [address] [place] [address] Kris Galeas MD [address] [place], [place] [id number] Social History Tobacco Use Types Packs/Day Years Used Date Smoking Tobacco: Never Assessed Comments Unknown Sex and Gender Information Value Date Recorded Sex Assigned at Female 07/02/2024 9:51 AM CDT 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 [address] [place] [id number] PCP - General Internal Medicine 01/09/22 documented as of this encounter
--- OUTSIDE RECORDS SUMMARY | 2025-02-01 08:34 | XMS_ITS ---
Author Organization [facility] [place] ([address]) Address [address] [address] Care Team Providers Care Photo Colorer Name Role Phone Goyo Ryan Primary Care Provider UnavailLeslie Núñez Unavailable [phone] Ina Valdez Unavailable Unavailable Allergies No Known Allergies REASON FOR VISIT ARC - constant nasal congestion, drainage and sneezing that occur year-round. Takes Singulair dailyand Zyrtec PRN. Started SCIT in 03/2024 and is tolerating well., Rash located posteriorly on neck - states this has been present for years. Reports [facility] diagnosis of psoriasis. Currently stable at this time. Medications Medication SIG (Take, Route, Frequency, Duration) Notes Start Date End Date Status SIT (Traditional) variable - see record per schedule subcutaneous per schedule for 999 days Active OLOPATADINE NASAL 665 mcg/inh 2 spray(s) intranasally 2 times a day for 30 days Active EPIPEN 2-DIONICIO 0.3 mg as directed intramuscularly once for 30 days Active rOPINIRole HCl 0.25 MG 1 tab(s) orally 3 times a day for 30 day(s) Not-Taking Metoprolol Tartrate 25 MG 1 tab(s) orally 2 times a day for 30 day(s) Not-Taking FLUTICASONE NASAL 50 mcg/inh 2 spray(s) in each nostril daily for 30 days As needed Active OLOPATADINE NASAL 665 MCG/INH 2 SPRAY(S) INTRANASALLY 2 TIMES A DAY for 90 DAYS *Please review for potential replacement for e-prescription and drug interaction check* Active NASAL WASHES N/A as directed intranasally as needed for 30 days Active Atorvastatin Calcium 10 MG 1 tab(s) orally once a day for 30 day(s) Active MONTELUKAST 10 mg 1 tab(s) orally once a day Active Dicyclomine HCl 10 MG 2 cap(s) orally PRN Active FLUoxetine HCl 20 MG 1 tab(s) orally once a day for 30 day(s) Active Metoprolol Tartrate 25 MG 1 tab(s) orally 2 times a day for 30 day(s) Active CETIRIZINE 10 mg 1 tab(s) orally once a day for 30 days Active Pantoprazole Sodium 40 MG 1 tab(s) orally once a day for 30 day(s) Active Xanax 0.5 MG 1 tab(s) orally PRN Active hydroCHLOROthiazide 50 MG 1 tab(s) orally once a day Active Montelukast Sodium 10 MG 1 tab(s) orally once a day Active Xiidra 5 % 1 gtt in each eye 2 times a day Active Flonase Allergy Relief 50 MCG/ACT 2 spray(s) intranasally (avoid nasal septum) twice daily for 30 day(s) Active EpiPen 2-Dionicio 0.3 mg as directed intramuscularly once for 30 days Active Fluticasone Propionate 50 MCG/ACT 2 spray(s) in each nostril BID for 30 days Active Cetirizine HCl 10 MG 1 tab(s) orally once a day for 30 days Active Social History Tobacco Use: Social History Observation Description Date Details (start date - stop date) Former Smoker NA - NA Tobacco Control (Standard) Question Answer Notes Tobacco use: Former smoker Vital Signs Blood pressure systolic 138 mm Hg 11/23/19 25 Blood pressure diastolic 94 mm Hg 025 Height 61 in 11/23/2024 Weight 162.2 lbs 11/23/2024 BMI 30.64 kg/m2 11/23/2024 Oximetry 95 % 11/23/2024 Encounters Encounter Location Date Provider Diagnosis [facility] [address] [facility] [address] [place] [id number] 11/23/2024 Leslie Dominguez Allergic rhinitis du e to pollen J30.1 ; Allergic rhinitis due to animal (cat) (dog) hair and dander J30.81 ; Other allergic rhinitis J30.89 ; Other chronic allergic conjunctivitis H10.45 ; Rash and other nonspecific skin eruption R21 and Essential (primary) hypertension I10 Assessments Encounter Date Diagnosis (ICD Code) Assessment Notes Treatment Notes Treatment Clinical Notes Section Notes 11/23/2024 Allergic rhinitis due to pollen (ICD-10 - J30.1) Miguel clearly suffers from atopic disease based upon our skin testing and history. Accordingly, we have encouraged his medication regimen, discussed nasal washes and allergy-specific avoidance measures. We also discussed adjunctive therapies including subcutaneous, specific allergen immunotherapy as relates to the treatment and prevention of atopic disease. After considering the risks, benefits and alternatives to this care, we continued treatment today. Risks: bleeding, infection, allergic reaction, anaphylaxis; Benefits: reduced need for medications, improved symptoms, disease modification. Alternatives: watch/wait, change medication regimen, improve allergy avoidance measures. The procedure was tolerated without large local or systemic symptoms concerning for anaphylaxis. - Continue medications as listed above. Recommend trial of Ann Marie due to drowsines after Zyrtec. Continue premedication. - AIE on hand. Patient was instructed that epinephrine needs to be carried to each immunotherapy visit and should be carried 2 hrs after dosing. - Increase SCIT intervals during peak seasons PRN - Follow-up in 4 weeks for SCIT, 6 months for E&M 11/23/2024 Allergic rhinitis due to animal (cat) (dog) hair and dander (ICD-10 - J30.81) Follow allergen avoidance, meds and continue SCIT as an adjunctive treatment to current regimen 11/23/2024 Other allergic rhinitis (ICD-10 - J30.89) Follow allergen avoidance, meds and continue SCIT as an adjunctive treatment to current regimen 11/23/2024 Other chronic allergic conjunctivitis (ICD-10 - H10.45) Given ocular signs and symptoms I encouraged allergy avoidance measures and meds as above. If symptoms persist, consider adding additional medications including intraocular antihistamine/mast cell stabilizer, PRN and continue SCIT as an adjunctive measure 11/23/2024 Rash and other nonspecific skin eruption (ICD-10 - R21) Miguel reports a rash located on the base of her scalp that has been present for several years. Reports diagnosis of psoriasis after evaluation by [facility]. Currently using a couple creams PRN for flares. Stable at this time. - Previously discussed use of all free and clear products, suggested Vanicream line. 11/23/2024 Essential (primary) hypertension (ICD-10 - I10) Miguel is currently taking a beta tara for blood pressure control. We discussed the risk of receiving immunotherapy while taking beta blockers. Beta blockers are not contraindicated in immunotherapy, but make the treatment of systemic reactions more difficult. Instructed to hold beta tara prior to receiving immunotherapy and then take 2 hours after SCIT Plan Of Treatment Medication Medication Name Sig Start Date Stop Date Notes SIT (Traditional) variable - see record per schedule subcutaneous per schedule for 999 days OLOPATADINE NASAL 665 mcg/inh 2 spray(s) intranasally 2 times a day for 30 days EPIPEN 2-DIONICIO 0.3 mg as directed intramus cularly once for 30 days FLUTICASONE NASAL 50 mcg/inh 2 spray(s) in each nostril daily for 30 days NASAL WASHES N/A as directed intranas ally as needed for 30 days MONTELUKAST 10 mg 1 tab(s) orally once a day CETIRIZINE 10 mg 1 tab(s) orally once a day for 30 days Treatment Notes Assessment Notes Allergic rhinitis due to pollen Miguel clearly suffers from atopic disease based upon our skin testing and history. Accordingly, we have encouraged his medication regimen, discussed nasal washes and allergy-specific avoidance measures. We also discussed adjunctive therapies including subcutaneous, specific allergen immunotherapy as relates to the treatment and prevention of atopic disease. After considering the risks, benefits and alternatives to this care, we continued treatment today. Risks: bleeding, infection, allergic reaction, anaphylaxis; Benefits: reduced need for medications, improved symptoms, disease modification. Alternatives: watch/wait, change medication regimen, improve allergy avoidance measures. The procedure was tolerated without large local or systemic symptoms concerning for anaphylaxis. - Continue medications as listed above. Recommend trial of Ann Marie due to drowsines after Zyrtec. Continue premedication. - AIE on hand. Patient was instructed that epinephrine needs to be carried to each immunotherapy visit and should be carried 2 hrs after dosing. - Increase SCIT intervals during peak seasons PRN - Follow-up in 4 weeks for SCIT, 6 months for E&M Allergic rhinitis due to ani mal (cat) (dog) hair and dander Follow allergen avoidance, meds and continue SCIT as an adjunctive treatment to current regimen Other allergic rhinitis Follow allergen avoidance, meds and continue SCIT as an adjunctive treatment to current regimen Other chronic allergic conjunctivitis Gi dell ocular signs and symptoms I encouraged allergy avoidance measures and meds as above. If symptoms persist, consider adding additional medications including intraocular antihistamine/mast cell stabilizer, PRN and continue SCIT as an adjunctive measure Rash and other nonspecific skin eruption Miguel reports a rash located on the base of her scalp that has been present for several years. Reports diagnosis of psoriasis after evaluation by [facility]. Currently using a couple creams PRN for flares. Stable at this time. - Previously discussed use of all free and clear products, suggested Vanicream line. Essential (primary) hypertension Miguel is currently taking a beta tara for blood pressure control. We discussed the risk of receiving immunotherapy while taking beta blockers. Beta blockers are not contraindicated in immunotherapy, but make the treatment of systemic reactions more difficult. Instructed to hold beta tara prior to receiving immunotherapy and then take 2 hours after SCIT Next Appt Details Follow Up: 4 Weeks,6 Months, Reason: SCIT,Evaluation and Management Provider Name:Umer Shanks Ajay , 02/15/2025 01:00:00 PM, [address] [facility], [address] [place] [address], [phone], Procedure Notes * Category Sub-Category Detail Notes SCIT Traditional Aeroallergen Schedul e Administration:: Full dosing administered per SOP and AAIC's titration schedule and/or specific instructions as outlined on the patient's shot record; see attached for specifics re: content, concentration, volume and location of injection(s). Progress Notes * Miguel AHUJA MDOB:1960 ( 64 yo F)Acc No.[id number]:11/23/2024 Progress Notes Patient: Pam SHERRYMiguel Jaylin Provider: PAVITHRA Eaton :1960 A ge:64 Y S ex:Female Date:11/23/2024 Address:[address] [place] [address] [id number] Pcp:Goyo Ryan Subjective: * Chief Complaints: * A RC - constant nasal congestion, drainage and sneezing that occur year-round. Takes Singulair daily and Zyrtec PRN. Started SCIT in 03/2024 and is tolerating well.Rash located posteriorly on neck - states this has been present for years. Reports [facility] diagnosis of psoriasis. Currently stable at this time. * HPI: * Introduction: I had the pleasure of seeing Chelsea Ahuja, a 64-year-old female with past medical history significant for ARC, hypertension, hyperlipidemia and IBS who presents for interval evaluation and management and to continue SCIT. She is alone for today's visit. She was last evaluated in 05/2024. A eroallergen skin testing was completed at first visit, and was positive to multiple seasonal and perennial allergens. She continues on Singulair daily, Zyrtec and Patanase PRN. She reports drowsiness with Zyrtec so often avoids. S CIT was initiated in 03/2024, reaching MM in 08/2024. She has been tolerating well without issues. Currently premedicating with Zyrtec and Singulair. AIE on hand and up to date. She reports prior evalution by [facility] for rash on neck, diagnosed as psoriasis. Now treating with a couple different creams used PRN for flares. It has overall improved since initial visit. No interval issues since last visit. Historially, Miguel has been experiencing persistent nasal congestion, drainage and sneezing that occurs daily throughout the year. She states that her symptoms used to only occur during certain seasons, but are now present perennially. She takes Singulair daily prescribed by her PCP, also uses Flonase, Claritin and nasal washes as needed. She has two dogs in her home. Additionally, Miguel reports a rash on the back of her neck that has been present for several years. She has been evaluated by her PCP who prescribed a topical, however she does not use it and is unsure what it is. She describes the rash as itchy and dry. Unsure what shampoo and conditioner she uses. Denies trigger to the rash, states it is always present. Miguel denies history of lower airway symptoms, has never been prescribed an inhaler, no history of hospitalizations.Today, she reports no fevers, chills, night sweats or other constitutional symptoms . The patient is here for scheduled specific allergen immunotherapy. Please see the attached specialty form regarding the specifics of the administration of these vaccines. As per our protocol, they must undergo a screening health questionnaire (medication changes, reaction(s) to last immunotherapy dose(s), current health status, ACT (if appropriate), self-injectable epinephrine on patient(?) and peak flow (if appropriate)). Also, the patient must wait in our office for 30 minutes after receiving immunotherapy. Furthermore, every patient must have an epinephrine pen (self-injectable) with them at the time of administration--and carry if for the following 1.5 hours after they leave our office. The patient must also have taken their antihistamine the day of the injection, preferably 2 hours prior. The consent form for SCIT (subcutaneous immunotherapy) is on file. * ROS: A LLERGY: Positive p er the HPI and history, otherwise unremarkable.? S PECIAL SENSES: Positve for n one. C ONSTITUTIONAL: Positive for n one. E NT: Positive p er the HPI and history, otherwise unremarkable.? R ESPIRATORY: Positive p er the HPI and history, otherwise unremakable.? O PHTHALMOLOGY: Positive for p er the HPI and history, otherwise unremarkable. E NDOCRINOLOGY: Positive for n one. C ARDIOLOGY: Positive for n one. G ASTROENTEROLOGY: Positive for n one. U ROLOGY: Positive for n one. D ERMATOLOGY: Positive for p er the HPI and history, otherwise unremakable. N EUROLOGY: Positive for n one. H EMATOLOGY/LYMPH: Positive for n one. M USCULOSKELETAL: Positive for n one. P SYCHOLOGY: Positive for n one. A ll other review of systems per the HPI and history, otherwise unremarkable. * Medical History: * Surgical History: b reast reduction wo c-sections blepharoplasty 05/2024 * Hospitalization/Major Diagno stic Procedure: N o Hospitalization History. * Family History: F ather: . M other: . 1 brother(s) , 1 sister(s) - healthy. 1 son(s) , 1 daughter(s) - healthy. . father- hypertension, stroke mother- hypertension. * Social History: A lcohol Screening Do you ever drink alcoholic beverages? Y es Frequency? W marlen Lloyd affeine: yes, frequency:. S moking Are you a : f ormer smoker stopped 10 years ago T obacco Control (Standard) Tobacco use: F ormer smoker * Medications: T akingEpiPen 2-Dionicio 0.3 mg kit as directed intramuscularly once EpiPen 2-Dionicio 0.3 mg kit as directed intramuscularly once CETIRIZINE 10 mg tablet 1 tab(s) orally once a day FLUTICASONE NASAL 50 mcg/inh spray 2 spray(s) in each nostril BID NASAL WASHES N/A 1 quart of sterilized tap water or distilled water, 1 tsp NaCl, 1 pinch of baking soda as directed intranasally as needed MONTELUKAST 10 mg tablet 1 tab(s) orally once a day OLOPATADINE NASAL 665 mcg/inh spray 2 spray(s) intranasally 2 times a day Cetirizine HCl 10 MG Tablet 1 tab(s) orally once a day Fluticasone Propionate 50 MCG/ACT Suspension 2 spray(s) in each nostril BID Montelukast Sodium 10 MG Tablet 1 tab(s) orally once a day hydroCHLOROthiazide 50 MG Tablet 1 tab(s) orally once a day Flonase Allergy Relief 50 MCG/ACT Suspension 2 spray(s) intranasally (avoid nasal septum) twice daily Xiidra 5 % Solution 1 gtt in each eye 2 times a day Xanax 0.5 MG Tablet 1 tab(s) orally PRN Dicyclomine HCl 10 MG Capsule 2 cap(s) orally PRN Metoprolol Tartrate 25 MG Tablet 1 tab(s) orally 2 times a day FLUoxetine HCl 20 MG Tablet 1 tab(s) orally once a day Pantoprazole Sodium 40 MG Tablet Delayed Release 1 tab(s) orally once a day Atorvastatin Calcium 10 MG Tablet 1 tab(s) orally once a day OLOPATADINE NASAL 665 MCG/INH SPRAY 2 SPRAY(S) INTRANASALLY 2 TIMES A DAY , Notes to Pharmacist: *Please review for potential replacement for e-prescription and drug interaction check*SIT (Traditional) variable - see record variable - see record per schedule subcutaneous per schedule Taking EpiPen 2-Dionicio 0.3 mg kit as directed intramuscularly once Taking EpiPen 2-Dionicio 0.3 mg kit as directed intramuscularly once Taking CETIRIZINE 10 mg tablet 1 tab(s) orally once a day Taking FLUTICASONE NASAL 50 mcg/inh spray 2 spray(s) in each nostril BID Taking NASAL WASHES N/A 1 quart of sterilized tap water or distilled water, 1 tsp NaCl, 1 pinch of baking soda as directed intranasally as needed Taking MONTELUKAST 10 mg tablet 1 tab(s) orally once a day Taking OLOPATADINE NASAL 665 mcg/inh spray 2 spray(s) intranasally 2 times a day Taking Cetirizine HCl 10 MG Tablet 1 tab(s) orally once a day Taking Fluticasone Propionate 50 MCG/ACT Suspension 2 spray(s) in each nostril BID Taking Montelukast Sodium 10 MG Tablet 1 tab(s) orally once a day Taking hydroCHLOROthiazide 50 MG Tablet 1 tab(s) orally once a day Taking Flonase Allergy Relief 50 MCG/ACT Suspension 2 spray(s) intranasally (avoid nasal septum) twice daily Taking Xiidra 5 % Solution 1 gtt in each eye 2 times a day Taking Xanax 0.5 MG Tablet 1 tab(s) orally PRN Taking Dicyclomine HCl 10 MG Capsule 2 cap(s) orally PRN Taking Metoprolol Tartrate 25 MG Tablet 1 tab(s) orally 2 times a day Taking FLUoxetine HCl 20 MG Tablet 1 tab(s) orally once a day Taking Pantoprazole Sodium 40 MG Tablet Delayed Release 1 tab(s) orally once a day Taking Atorvastatin Calcium 10 MG Tablet 1 tab(s) orally once a day Taking OLOPATADINE NASAL 665 MCG/INH SPRAY 2 SPRAY(S) INTRANASALLY 2 TIMES A DAY , Notes to Pharmacist: *Please review for potential replacement for e-prescription and drug interaction check*Taking SIT (Traditional) variable - see record variable - see record per schedule subcutaneous per schedule Not-Taking/PRNrOPINIRole HCl 0.25 MG Tablet 1 tab(s) orally 3 times a day Metoprolol Tartrate 25 MG Tablet 1 tab(s) orally 2 times a day Medication List reviewed and reconciled with the patientNot- Taking/PRN rOPINIRole HCl 0.25 MG Tablet 1 tab(s) orally 3 times a day Not-Taking/PRN Metoprolol Tartrate 25 MG Tablet 1 tab(s) orally 2 times a day Medication List reviewed and reconciled with the patient * Allergies: N .K.D.A.no[Allergies Verified] Objective: * Vitals: B P:138/94mm Hg, HR:57/min, Pulse Oximetry:95%, Ht: 61 in, Wt: 162.2 lbs, BMI:30.64Index. * Examination: G eneral examination: General appearance: p leasant, well-developed, well-nourished, in no apparent distress, speaking in full sentences. HEENT: c onjunctiva are normal bilaterally, TMs without evidence of acute infection, turbinates 2+ swollen and pale inferiorly bilaterally, clear rhinorrhea is present, no polyps noted, no septal perforation, posterior oropharynx is clear without exudates, erythema on pharyngeal wall, no exudates, no tongue swelling, and uvula is midline. Oral cavity: n ormal, no lesions. Breasts : n ot performed. Heart: R RR, S1-S2, no murmurs, no rubs, no gallops. Lungs: c lear to auscultation in all lung hassan, no wheezes, no crackles, no rhonchi. Neurologic exam: u nremarkable. Skin: n ormal, no d ermatographism, urticaria, angioedema; plaque noted at base of hairline. Back: n ormal. Extremities: n ormal ROM, no clubbing, no cyanosis, no edema. Genitalia: n ot performed. Assessment: * Assessment: 1. A llergic rhinitis due to pollen - J30.1 (Primary) 2 . A llergic rhinitis due to animal (cat) (dog) hair and dander - J30.81 3 . O ther allergic rhinitis - J30.89 4 . O ther chronic allergic conjunctivitis - H10.45 5 . R michele and other nonspecific skin eruption - R21 6 . E ssential (primary) hypertension - I10 Plan: * Treatment: 2. A llergic rhinitis due to animal (cat) (dog) hair and dander Notes: Follow allergen avoidance, meds and continue SCIT as an adjunctive treatment to current regimen 3. O ther allergic rhinitis Notes: Follow allergen avoidance, meds and continue SCIT as an adjunctive treatment to current regimen 4. O ther chronic allergic conjunctivitis Notes: Given ocular signs and symptoms I encouraged allergy avoidance measures and meds as above. If symptoms persist, consider adding additional medications including intraocular antihistamine/mast cell stabilizer, PRN and continue SCIT as an adjunctive measure 5. R michele and other nonspecific skin eruption Notes: Miguel reports a rash located on the base of her scalp that has been present for several years. Reports diagnosis of psoriasis after evaluation by [facility]. Currently using a couple creams PRN for flares. Stable at this time. - Previously discussed use of all free and clear products, suggested Vanicream line. 6. E ssential (primary) hypertension Notes: Miguel is currently taking a beta tara for blood pressure control. We discussed the risk of receiving immunotherapy while taking beta blockers. Beta blockers are not contraindicated in immunotherapy, but make the treatment of systemic reactions more difficult. Instructed to hold beta tara prior to receiving immunotherapy and then take 2 hours after SCIT * Procedures: S CIT: Traditional Aeroallergen Schedule A dministration: F ull dosing administered per SOP and AAIC's titration schedule and/or specific instructions as outlined on the patient's shot record; see attached for specifics re: content, concentration, volume and location of injection(s). * Procedure Codes: G 8427 DOC MEDS VERIFIED W/PT OR [id number] IMMUNOTHERAPY INJECTIONS * Preventive Medicine: Counseling: D iet a s tolerated. E xercise C ontinue activity as usual, Avoid heavy lifting on days of allergy immunotherapy. M edication instruction: W atch for side effects of prescribed medications, Nasal steroid/antihistamine instruction: avoid septum. E ducation: G ENERAL EDUCATION: Our staff spent an additional 30 minutes in direct contact with the patient educating them on their current diagnoses and proper treatment and prevention of symptoms and the proper use of medications. E ducation 2: A RC EDUCATION: Our staff discussed the appropriate allergen avoidance measures and medication utilization including upper airway hygiene with daily nasal washes given the patient's clinical status and diagnoses. SCIT EDUCATION: Discussed allergy immunotherapy including the relative risks, benefits and alternatives to this treatment as an adjunctive measure to current therapy, Allergy Immunotherapy: Risks: bleeding, infection, allergic reaction, anaphylaxis = severe allergic reaction that can cause ; Benefits: reduced need for medications, improved symptoms, disease modification. Alternatives: watch/wait, change medication regimen, improve allergy avoidance measures, Our staff discussed the warning signs of anaphylaxis and the indications to use self-injectable epinephrine and seek urgent or emergent care. P atient education material sent to portal? Y es C are goal follow up plan BMI management provided Y es Above Normal BMI Follow-up D ietary management education, guidance, and counseling B P Management: FIRST HYPERTENSIVE BP READING FOLLOW-UP PLAN: F ollow-up 1 month REFERRAL TO ALTERNATIVE / PRIMARY CARE PROVIDER: R saqibal to general practitioner * Follow Up: 4 Weeks,6 Months (Reason: SCIT,Evaluation and Management) * Billing Information: * Visit Code: 29266 Office Visit, Est Pt., Level 4. Modifiers: 25 * Procedure Codes: G8427 DOC MEDS VERIFIED W/[place]. [address] IMMUNOTHERAPY INJECTIONS. * HIATRIST Electronically co-signed by Umer Moss MD, [facility] on 11/28/2024 at 04:52 PM PSYCHIATRIST Sign off status: Completed true * Provider: PAVITHRA Eaton Date: 0 11/23/2024 Generated for Nimco knight/Jovany/Jennifersmitting on: 0 02/01/2025 08:34 AM CDT History and Physical Notes * HPI (History of Present Illness) Category Sub-Category Detail Notes Category Notes *Introduction I had the pleasure of seeing Miguel Ahuja, a 64-year-old female with past medical history significant for ARC, hypertension, hyperlipidemia and IBS who presents for interval evaluation and management and to continue SCIT. She is alone for today's visit. She was last evaluated in 05/2024. Aeroallergen skin testing was completed at first visit, and was positive to multiple seasonal and perennial allergens. She continues on Singulair daily, Zyrtec and Patanase PRN. She reports drowsiness with Zyrtec so often avoids. SCIT was initiated in 03/2024, reaching MM in 08/2024. She has been tolerating well without issues. Currently premedicating with Zyrtec and Singulair. AIE on hand and up to date. She reports prior evalution by [facility] for rash on neck, diagnosed as psoriasis. Now treating with a couple different creams used PRN for flares. It has overall improved since initial visit. No interval issues since last visit. Historially, Miguel has been experiencing persistent nasal congestion, drainage and sneezing that occurs daily throughout the year. She states that her symptoms used to only occur during certain seasons, but are now present perennially. She takes Singulair daily prescribed by her PCP, also uses Flonase, Claritin and nasal washes as needed. She has two dogs in her home. Additionally, Miguel reports a rash on the back of her neck that has been present for several years. She has been evaluated by her PCP who prescribed a topical, however she does not use it and is unsure what it is. She describes the rash as itchy and dry. Unsure what shampoo and conditioner she uses. Denies trigger to the rash, states it is always present. Miguel denies history of lower airway symptoms, has never been prescribed an inhaler, no history of hospitalizations. Today, she reports no fevers, chills, night sweats or other constitutional symptoms The patient is here for scheduled specific allergen immunotherapy. Please see the attached specialty form regarding the specifics of the administration of these vaccines. As per our protocol, they must undergo a screening health questionnaire (medication changes, reaction(s) to last immunotherapy dose(s), current health status, ACT (if appropriate), self-injectable epinephrine on patient(?) and peak flow (if appropriate)). Also, the patient must wait in our office for 30 minutes after receiving immunotherapy. Furthermore, every patient must have an epinephrine pen (self-injectable) with them at the time of administration--and carry if for the following 1.5 hours after they leave our office. The patient must also have taken their antihistamine the day of the injection, preferably 2 hours prior. The consent form for SCIT (subcutaneous immunotherapy) is on file. Examination Category Sub-Category Detail Notes Category Not es General examination HEENT: conjunctiva are normal bilaterally, TMs without evidence of acute infection, turbinates 2+ swollen and pale inferiorly bilaterally, clear rhinorrhea is present, no polyps noted, no septal perforation, posterior oropharynx is clear without exudates, erythema on pharyngeal wall, no exudates, no tongue swelling, and uvula is midline Heart: RRR, S1-S2, no murmu rs, no rubs, no gallops Lungs: clear to auscultatio n in all lung hassan, no wheezes, no crackles, no rhonchi Extremities: normal ROM, no clubb ing, no cyanosis, no edema General appearance: pleasant, well-devel oped, well-nourished, in no apparent distress, speaking in full sentences Skin: normal, no dermatogr aphism, urticaria, angioedema; plaque noted at base of hairline Neurologic exam: unremarkable Oral cavity: normal, no lesions Breasts : not performed Back: normal Genitalia: not performed
--- OUTSIDE RECORDS SUMMARY | 2025-02-01 08:34 | XMS_ITS | Encounter Summary ---
Author Organization [facility] Address 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, [place] [address] Patient: SUDHEREMIGUEL GONZALEZ : 1960 Procedure Date: 06/07/2009 Accession Date: 06/08/2009 Case No: [id number] Ordering Dr: NALLELY LEO Case type SW is performed by [facility], [place], [place]; all other case types are performed by [facility], [place], [place] SURGICAL PATHOLOGY & NON-GYNECOLOGIC CYTOPATHOLOGY REPORT DIAGNOSIS LARGE INTESTINE, RANDOM COLON, BIOPSY: - EARLY HYPERPLASTIC POLYP, ONE PIECE OF. - NO PATHOLOGIC DIAGNOSIS, OTHER PIECES OF. Specimen Description: Random colon biopsy. Operative Procedure: Colonoscopy. Patient Information/Histor y/Diagnosis: Rule out colitis. Gross: The specimen is received in a container labeled Miguel Chaudhari random colon biopsy. It consists of six pieces of mcintyre tissue ranging from 0.1 to 0.2 cm in greatest dimension. The specimen is submitted entirely labeled A1. CLAUDY/CATHLEEN 06.08.2009 11:27 am Microscopic: The slides are labeled [id number] and Miguel Chaudhari. The random colon biopsy includes one mucosal fragment showing tubular glands with mild hyperplastic changes in keeping with an early hyperplastic polyp. The other mucosal fragments show no significant histopathologic abnormality. The inflammatory composition within the lamina propria appears appropriate. A single neutrophil is identified but additional active inflammation is not seen. No granulomas are present. There is no significant architectural distortion or thickening of the subepithelial collagen plate. No adenomatous transformation is seen. GL/LKP 06.09.2009 09:34 am Staging Form: No. ELECTRONIC SIGNATURE FOR RAFY SHUKLA M.D.- 06/09/09 01:53 pm [facility] 06/07/2009 5:00 PM CDT Nallely Leo MD PATHOLOGY/CYTOLOGY ORDERABLES Final Result [facility] CLIA# [id number] 5 [facility] [place] [address] * POC , URINE (06/07/2009 2:47 PM CDT) , URINE POC Negative Negative [facility] CLIA LICENSE [id number] [facility] Urine specimen (specimen) 06/07/2009 2:47 PM CDT 06/07/2009 2:47 PM CDT Nallely Leo MD POINT OF CARE TESTING Final Re sult [facility] CLIA# [id number] [address] [place] [address] documented in this encounter Visit Diagnoses Not on filedocumented in this encounter Additional Health Concerns Infection Onset Date Last Indicated Resolved Time C Diff 05/03/2018 05/03/2018 02/25/2023 1:00 AM CDT documented as of this encounter Care Teams Naval Architect Specialist Relationship Specialty Start Date End Date Basim Yip DO [address] [facility] [address] [place] [address] PCP - General Internal Medicine 01/09/22 documented as of this encounter
--- OUTSIDE RECORDS SUMMARY | 2025-02-01 08:34 | XMS_ITS | Encounter Summary ---
Author Organization [employer] Address [address] [place] [address] Care Team Providers Care Wooden Box Maker Name Role Phone Basim Yip DO Primary Care Provider [phone] Encounter Details Date Type Department Care Team (Latest Contact Info) Description 06/21/2003 Outpatient Historical [facility] Kris Galeas MD [address] [place], [place] [id number] SCREENING MAMM-MAILG NEOPL-OTHER (Primary Dx) Social History Tobacco Use Types Packs/Day Years Used Date Smoking Tobacco: Never Assessed Comments Unknown Sex and Gender Information Value Date Recorded Sex Assigned at Female 07/02/2024 9:51 AM CDT Legal Sex Female 4:46 AM BSW Gender Identity Female 07/02/2024 9:51 AM CDT [...] documented as of this encounter Care Teams Wooden Box Maker Relationship Specialty Start Date End Date Basim Yip DO [address] [facility] [address] [place] [address] PCP - General Internal Medicine 01/09/22 documented as of this encounter
--- OUTSIDE RECORDS SUMMARY | 2025-02-01 08:34 | XMS_ITS | Encounter Summary ---
Author Organization [facility] Address 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 - [address] [place] [address] Kris Galeas MD [address] [place], [place] [phone] Social History Tobacco Use Types Packs/Day Years Used Date Smoking Tobacco: Never Assessed Comments Unknown Sex and Gender Information Value Date Recorded Sex Assigned at Female 07/02/2024 9:51 AM CDT Legal Sex Female 4:46 AM FRYLINE ATTENDANT Gender Identity Female 07/02/2024 9:51 AM CDT [...] documented as of this encounter Care Teams Technical Support Technician Relationship Specialty Start Date End Date Basim Yip DO [address] [facility] [address] [place] [id number] PCP - General Internal Medicine 01/09/22 documented as of this encounter
--- OUTSIDE RECORDS SUMMARY | 2025-02-01 08:34 | XMS_ITS | Encounter Summary ---
Author Organization [employer] Address [address] [place] [address] Care Team Providers Care Diesel Machinist Name Role Phone Basim Yip DO Primary Care Provider [phone] Encounter Details Date Type Department Care Team (Latest Contact Info) Description 07/07/2006 Outpatient Historical [facility] Elton Higgins MD [address] [place] [phone] Other Screening Mammogram (Primary Dx) Social History Tobacco Use Types Packs/Day Years Used Date Smoking Tobacco: Never Assessed Comments Unknown Sex and Gender Information Value Date Recorded Sex Assigned at Female 07/02/2024 9:51 AM CDT Legal Sex Female 4:46 AM CURRICULUM ASSISTANT PRINCIPAL Gender Identity Female 07/02/2024 9:51 AM CDT [...] documented as of this encounter Care Teams Diesel Machinist Relationship Specialty Start Date End Date Basim Yip DO [address] [facility] [address] [place] [address] PCP - General Internal Medicine 01/09/22 documented as of this encounter
--- OUTSIDE RECORDS SUMMARY | 2025-02-01 08:34 | XMS_ITS | Encounter Summary ---
Author Organization [facility] Address [address] [place] [address] Care Team Providers Care Laboratory Veterinarian Name Role Phone Basim Yip DO Primary Care Provider [phone] Encounter Details Date Type Department Care Team (Late st Contact Info) Description 02/06/2003 Outpatient Historical [facility] SHIRT BANDER - [address] [place] [address] Kris Galeas MD [address] [place], [place] [id number] Social History Tobacco Use Types Packs/Day Years Used Date Smoking Tobacco: Never Assessed Comments Unknown Sex and Gender Information Value Date Recorded Sex Assigned at Female 07/02/2024 9:51 AM CDT Legal Sex Female 4:46 AM RN TELEPHONIC Gender Identity Female 07/02/2024 9:51 AM CDT [...] documented as of this encounter Care Teams Laboratory Veterinarian Relationship Specialty Start Date End Date Basim Yip DO [address] [facility] [address] [place] [address] PCP - General Internal Medicine 01/09/22 documented as of this encounter
--- OUTSIDE RECORDS SUMMARY | 2025-02-01 08:34 | XMS_ITS | Encounter Summary ---
Author Organization [facility] Address [address] [place] [address] Care Team Providers Care Delivery Table Operator Name Role Phone Basim Yip DO Primary Care Provider Encounter Details Date Type Department Care Team (Late st Contact Info) Description 01/20/2006 Outpatient Historical [facility] PROSTHETIST - [address] [place] [address] Jewel Harrington MD [address] [place] [address] [place] [phone] Social History Tobacco Use Types Packs/Day Years Used Date Smoking Tobacco: Never Assessed Comments Unknown Sex and Gender Information Value Date Recorded Sex Assigned at Female 07/02/2024 9:51 AM CDT Legal Sex Female 4:46 AM EXCEPTIONAL STUDENT EDUCATION AIDE Gender Identity Female 07/02/2024 9:51 AM CDT [...] documented as of this encounter Care Teams Delivery Table Operator Relationship Specialty Start Date End Date Basim Yip DO [address] [facility] [address] [place] [address] PCP - General Internal Medicine 01/09/22 documented as of this encounter
--- OUTSIDE RECORDS SUMMARY | 2025-02-01 08:34 | XMS_ITS | Encounter Summary ---
Author Organization [employer] Address 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 OPERATOR HELPER Gender Identity Female 07/02/2024 9:51 AM CDT Sexual Orientation Asexual 07/02/2024 9: 51 AM CDT documented as of this encounter Plan of Treatment Not on file documented as of this encounter Procedures Procedure Name Priority Date/Time Associated Diagnosis Comments XR CHEST PA AND LATERAL 2 VW Routine 03/24/2008 3:57 PM CDT documented in this encounter Results * XR CHEST PA AND LATERAL (03/24/2008 3:57 PM CDT) Anatomical Region Laterality Modality Chest Other 03/24/2008 3:57 PM CDT Narrative 03/25/2008 9:34 AM CDT [address] [address] Admit Date: 03/24/2008 MIGUEL AHUJA Sex: F Admit Prov: TERRY JIMENEZ Date: 1960 Primary Care Prov: TERRY JIMENEZ CMRN: [id number] Room: [facility]: [address] [place] [address] IMAGING SERVICES Ordering Prov: N/A Accession Number: [id number] Interpretation Clinical Indication: 47-year-old woman with chest pain, hypertension. REPORT: FRONTAL AND LATERAL CHEST RADIOGRAPH 03/24/2008 Comparisons: None. Findings: The heart size and pulmonary vasculature are within normal limits. There is no focal consolidation, pleural effusion or pneumothorax. There are mild degenerative changes within the midthoracic spine. Impression: No radiographic evidence of acute cardiopulmonary disease. . Dictated by: KEVIN BIRMINGHAM 03/24/2008 16:05 Electronically signed by: KEVIN BIRMINGHAM 03/25/2008 09:34 Transcribed: 03/24/2008 19:54 SJ Procedure Note Kevin [place] - 03/25/[address] [address] Admit Date: 03/24/2008 MIGUEL AHUJA Sex: F Admit Prov: TERRY JIMENEZ Date: 1960 Primary Care Prov: TERRY JIMENEZ CMRN: [id number] Room: [facility]: [address] [place] [address] IMAGING SERVICES Ordering Prov: N/A Interpretation Clinical Indication: 47-year-old woman with chest pain,hypertension. REPORT: FRONTAL AND LATERAL CHEST RADIOGRAPH 03/24/2008 Comparisons: None. Findings: The heart size and pulmonary vasculature are withinnormal limits. There is no focal consolidation, pleural effusion orpneumothorax. There are mild degenerative changes within the midthoracic spine. Impression: No radiographic evidence of acute cardiopulmonary disease. . Dictated by: KEVIN BIRMINGHAM 03/24/2008 16:05 Electronically signed by: KEVIN BIRMINGHAM 03/25/2008 09:34 Transcribed: 03/24/2008 19:54 SJ us Terry Jimenez MD DIAGNOSTIC IMAGING ORDERABLE S Final Result documented in this encounter Visit Diagnoses Diagnosis Chest pain, unspecified documented in this encounter Additional Health Concerns Infection Onset Date Last Indicated Resolved Time C Diff 05/03/2018 05/03/2018 02/25/2023 1:00 AM CDT documented as of this encounter Care Teams Pediatric Audiologist Relationship Specialty Start Date End Date Basim Yip DO [address] [facility] [address] [facility] [address] [place] [address] PCP - General Internal Medicine 01/09/22 documented as of this encounter
--- OUTSIDE RECORDS SUMMARY | 2025-02-01 08:34 | XMS_ITS | Encounter Summary ---
Author Organization [employer] Address [address] [place] [address] Care Team Providers Care As400 Administrator Name Role Phone Basim Yip DO Primary Care Provider Encounter Details Date Type Department Care Team (Latest Contact Info) Description 06/20/2004 Outpatient Historical [facility] Kris Galeas MD [address] [place], [place] [phone] SCREENING MAMM-MAILG NEOPL-OTHER (Primary Dx) Social History Tobacco Use Types Packs/Day Years Used Date Smoking Tobacco: Never Assessed Comments Unknown Sex and Gender Information Value Date Recorded Sex Assigned at Female 07/02/2024 9:51 AM CDT Legal Sex Female 4:46 AM BEACH EXPERT Gender Identity Female 07/02/2024 9:51 AM CDT [...] documented as of this encounter Care Teams As400 Administrator Relationship Specialty Start Date End Date Basim Yip DO [address] [facility] [address] [place] [address] PCP - General Internal Medicine 01/09/22 documented as of this encounter
--- OUTSIDE RECORDS SUMMARY | 2025-02-01 08:34 | XMS_ITS | Encounter Summary ---
Author Organization [facility] Address 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 - [address] [place] [address] Kris Galeas MD [address] [place], [place] [phone] Social History Tobacco Use Types Packs/Day Years Used Date Smoking Tobacco: Never Assessed Comments Unknown Sex and Gender Information Value Date Recorded Sex Assigned at Female 07/02/2024 9:51 AM CDT Legal Sex Female 4:46 AM WRAPPER STITCHER Gender Identity Female 07/02/2024 9:51 AM CDT [...] documented as of this encounter Care Teams Tile Applicator Relationship Specialty Start Date End Date Basim Yip DO [address] [facility] [address] [place] [address] PCP - General Internal Medicine 01/09/22 documented as of this encounter
--- OUTSIDE RECORDS SUMMARY | 2025-02-01 08:34 | XMS_ITS | Encounter Summary ---
Author Organization [facility] Address 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 - [address] [place] [address] Jewel Harrington MD [address] [place] [address] [place] [phone] Social History Tobacco Use Types Packs/Day Years Used Date Smoking Tobacco: Never Assessed Comments Unknown Sex and Gender Information Value Date Recorded Sex Assigned at Female 07/02/2024 9:51 AM CDT Legal Sex Female 4:46 AM REAL ESTATE LISTING CONSULTANT Gender Identity Female 07/02/2024 9:51 AM CDT [...] documented as of this encounter Care Teams Crystal Cutter Relationship Specialty Start Date End Date Basim Yip DO [address] [facility] [address] [place] [address] PCP - General Internal Medicine 01/09/22 documented as of this encounter
--- OUTSIDE RECORDS SUMMARY | 2025-02-01 08:34 | XMS_ITS | Patient Health Record ---
Author Organization [facility] ([address]) Address [address] [address] Care Team Providers Care Prisoner Classification Interviewer Name Role Phone Goyo Ryan Primary Care Provider UnavailLeslie Núñez Unavailable [phone] Ina Valdez Unavailable Unavailable Umer Moss Unavailable [phone] [facility], Provider Unavailable Unavailab le Allergies No Known Allergies Reason For Referral No Information Medications Medication SIG (Take, Route, Frequency, Duration) Notes Start Date End Date Status EpiPen 2-Dionicio 0.3 mg as directed intramuscularly once for 30 days Active CETIRIZINE 10 mg 1 tab(s) orally once a day for 30 days Active EPIPEN 2-DIONICIO 0.3 mg as directed intramuscularly once for 30 days Active FLUTICASONE NASAL 50 mcg/inh 2 spray(s) in each nostril daily for 30 days As needed Active NASAL WASHES N/A as directed intranasally as needed for 30 days Active MONTELUKAST 10 mg 1 tab(s) orally once a day Active OLOPATADINE NASAL 665 mcg/inh 2 spray(s) intranasally 2 times a day for 30 days Active Dicyclomine HCl 10 MG 2 cap(s) orally PRN Active Metoprolol Tartrate 25 MG 1 tab(s) orally 2 times a day for 30 day(s) Active FLUoxetine HCl 20 MG 1 tab(s) orally once a day for 30 day(s) Active SIT (Traditional) variable - see record per schedule subcutaneous per schedule for 999 days Active Pantoprazole Sodium 40 MG 1 tab(s) orally once a day for 30 day(s) Active Cetirizine HCl 10 MG 1 tab(s) orally once a day for 30 days Active Atorvastatin Calcium 10 MG 1 tab(s) orally once a day for 30 day(s) Active Fluticasone Propionate 50 MCG/ACT 2 spray(s) in each nostril BID for 30 days Active OLOPATADINE NASAL 665 MCG/INH 2 SPRAY(S) INTRANASALLY 2 TIMES A DAY for 90 DAYS *Please review for potential replacement for e-prescription and drug interaction check* Active Montelukast Sodium 10 MG 1 tab(s) orally once a day Active rOPINIRole HCl 0.25 MG 1 tab(s) orally 3 times a day for 30 day(s) Not-Taking hydroCHLOROthiazide 50 MG 1 tab(s) orally once a day Active Metoprolol Tartrate 25 MG 1 tab(s) orally 2 times a day for 30 day(s) Not-Taking Flonase Allergy Relief 50 MCG/ACT 2 spray(s) intranasally (avoid nasal septum) twice daily for 30 day(s) Active Xiidra 5 % 1 gtt in each eye 2 times a day Active Xanax 0.5 MG 1 tab(s) orally PRN Active Social History Tobacco Use: Social History Observation Description Date Details (start date - stop date) Former Smoker NA - NA Tobacco Control (Standard) Question Answer Notes Tobacco use: Former smoker Problems Problem Type SNOMED Code ICD Code Onset Dates Problem Status W/U Status Risk Notes Problem Eruption of skin (885339102) Rash and other nonspecific skin eruption (R21) Active confirmed Problem Chronic allergic conjunctivitis (75723425) Other chronic allergic conjunctivitis (H10.45) Active confirmed Problem Essential hypertension (02574752) Essential (primary) hypertension (I10) Active confirmed Problem Allergic rhinitis caused by pollen (disorder) (27423467) Allergic rhinitis due to pollen (J30.1) Active confirmed Problem Allergic rhinitis (96028008) Other allergic rhinitis (J30.89) Active confirmed Problem Allergic rhinitis caused by animal hair and dander (758423004711739) Allergic rhinitis due to animal (cat) (dog) hair and dander (J30.81) Active confirmed Vital Signs Respiratory Rate 18 /min 05/25/2024 Oximetry 95 % 11/23/2024 Blood pressure diastolic 94 mm Hg 11/23/2024 Height 61 in 11/23/2024 Blood pressure systolic 138 mm Hg 11/23/2024 Weight 162.2 lbs 11/23/2024 BMI 30.64 kg/m2 11/23/2024 Encounters Encounter Location Date Provider Diagnosis [address] [address] 03/26/2024 Provider [facility] Allergic rhinitis due to pollen J30.1 [facility] [address] [place] [phone] 03/31/2024 Umer Moss Allergic rhinitis du e to pollen J30.1 ; Allergic rhinitis due to animal (cat) (dog) hair and dander J30.81 ; Other allergic rhinitis J30.89 and Other chronic allergic conjunctivitis H10.[address] [address] 04/06/2024 Umer Moss Allergic rhinitis du e to pollen J30.1 ; Allergic rhinitis due to animal (cat) (dog) hair and dander J30.81 ; Other allergic rhinitis J30.89 and Other chronic allergic conjunctivitis H10.[address] [address] 04/13/2024 Umer Moss Allergic rhinitis du e to pollen J30.1 ; Allergic rhinitis due to animal (cat) (dog) hair and dander J30.81 ; Other allergic rhinitis J30.89 and Other chronic allergic conjunctivitis H10.[address] [address] 04/20/2024 Umer Moss Allergic rhinitis du e to pollen J30.1 ; Allergic rhinitis due to animal (cat) (dog) hair and dander J30.81 ; Other allergic rhinitis J30.89 and Other chronic allergic conjunctivitis H10.[address] [address] 04/27/2024 Umer Moss Allergic rhinitis du e to pollen J30.1 ; Allergic rhinitis due to animal (cat) (dog) hair and dander J30.81 ; Other allergic rhinitis J30.89 and Other chronic allergic conjunctivitis H10.45 [facility] [address] [place] [address] [facility] [address] [address] 05/03/2024 Umer Ajay Allergic rhinitis du e to pollen J30.1 ; Allergic rhinitis due to animal (cat) (dog) hair and dander J30.81 ; Other allergic rhinitis J30.89 and Other chronic allergic conjunctivitis H10.45 [facility] [address] [place] [address] [facility] [address] [address] 05/09/2024 Umer Ajay Allergic rhinitis du e to pollen J30.1 ; Allergic rhinitis due to animal (cat) (dog) hair and dander J30.81 ; Other allergic rhinitis J30.89 and Other chronic allergic conjunctivitis H10.45 [facility] [address] [place] [phone] 05/16/2024 Umer Moss Allergic rhinitis du e to pollen J30.1 ; Allergic rhinitis due to animal (cat) (dog) hair and dander J30.81 ; Other allergic rhinitis J30.89 and Other chronic allergic conjunctivitis H10.45 [facility] [address] [place] [address] [facility] [address] [address] 05/25/2024 Leslie Dominguez Allergic rhinitis du e to pollen J30.1 ; Allergic rhinitis due to animal (cat) (dog) hair and dander J30.81 ; Other allergic rhinitis J30.89 ; Other chronic allergic conjunctivitis H10.45 ; Rash and other nonspecific skin eruption R21 and Essential (primary) hypertension I10 [facility] [address] [place] [address] [facility] [address] [address] 06/01/2024 Umer Moss Allergic rhinitis du e to pollen J30.1 ; Other allergic rhinitis J30.89 ; Allergic rhinitis due to animal (cat) (dog) hair and dander J30.81 and Other chronic allergic conjunctivitis H10.45 [facility] [address] [place] [address] [employer] [address] [place] [phone] 06/06/2024 Umer Moss Allergic rhinitis du e to pollen J30.1 ; Other allergic rhinitis J30.89 ; Allergic rhinitis due to animal (cat) (dog) hair and dander J30.81 and Other chronic allergic conjunctivitis H10.45 [facility] [address] [place] [address] [facility] [address] [address] 06/14/2024 Umer Ajay Allergic rhinitis du e to pollen J30.1 ; Other allergic rhinitis J30.89 ; Allergic rhinitis due to animal (cat) (dog) hair and dander J30.81 and Other chronic allergic conjunctivitis H10.45 [facility] [address] [place] [address] [facility] [address] [address] 06/27/2024 Umer Moss Allergic rhinitis du e to pollen J30.1 ; Other allergic rhinitis J30.89 ; Allergic rhinitis due to animal (cat) (dog) hair and dander J30.81 and Other chronic allergic conjunctivitis H10.45 [facility] [address] [place] [address] [facility] [address] [address] 07/11/2024 Umer Moss Allergic rhinitis du e to pollen J30.1 ; Other allergic rhinitis J30.89 ; Allergic rhinitis due to animal (cat) (dog) hair and dander J30.81 and Other chronic allergic conjunctivitis H10.45 [facility] [address] [place] [address] [facility] [address] [address] 08/08/2024 Umer Moss Allergic rhinitis du e to pollen J30.1 ; Other allergic rhinitis J30.89 ; Allergic rhinitis due to animal (cat) (dog) hair and dander J30.81 and Other chronic allergic conjunctivitis H10.45 [facility] [address] [place] [address] 08/15/2024 Umer Moss Allergic rhinitis du e to pollen J30.1 ; Other allergic rhinitis J30.89 ; Allergic rhinitis due to animal (cat) (dog) hair and dander J30.81 and Other chronic allergic conjunctivitis H10.45 [facility] [address] [place] [address] [facility] [address] [address] 09/14/2024 Umer Moss Allergic rhinitis du e to pollen J30.1 ; Other allergic rhinitis J30.89 ; Allergic rhinitis due to animal (cat) (dog) hair and dander J30.81 and Other chronic allergic conjunctivitis H10.45 [facility] [address] [place] [address] 09/19/2024 Umer Ajay Allergic rhinitis du e to pollen J30.1 ; Other allergic rhinitis J30.89 ; Allergic rhinitis due to animal (cat) (dog) hair and dander J30.81 and Other chronic allergic conjunctivitis H10.45 [facility] [address] [place] [address] 09/26/2024 Umer Ajay Allergic rhinitis du e to pollen J30.1 ; Other allergic rhinitis J30.89 ; Allergic rhinitis due to animal (cat) (dog) hair and dander J30.81 and Other chronic allergic conjunctivitis H10.45 [facility] [address] [place] [phone] 10/31/2024 Umer Moss Allergic rhinitis du e to pollen J30.1 ; Other allergic rhinitis J30.89 ; Allergic rhinitis due to animal (cat) (dog) hair and dander J30.81 and Other chronic allergic conjunctivitis H10.45 [facility] [address] [place] [phone] 11/23/2024 Leslie Dominguez Allergic rhinitis du e to pollen J30.1 ; Allergic rhinitis due to animal (cat) (dog) hair and dander J30.81 ; Other allergic rhinitis J30.89 ; Other chronic allergic conjunctivitis H10.45 ; Rash and other nonspecific skin eruption R21 and Essential (primary) hypertension I10 [facility] [address] [place] [address] 12/21/2024 Umer Moss Allergic rhinitis du e to pollen J30.1 ; Other allergic rhinitis J30.89 ; Allergic rhinitis due to animal (cat) (dog) hair and dander J30.81 and Other chronic allergic conjunctivitis H10.45 [facility] [address] [place] [phone] 01/18/2025 Umer Moss Allergic rhinitis du e to pollen J30.1 ; Other allergic rhinitis J30.89 ; Allergic rhinitis due to animal (cat) (dog) hair and dander J30.81 and Other chronic allergic conjunctivitis H10.45 [facility] [address] [address] 03/03/2024 Leslie Dominguez [facility] [address] [place] [phone] 03/03/2024 Leslie Dominguez [facility] [address] [place] [address] 03/29/2024 Leslie Dominguez Assessments Encounter Date Diagnosis (ICD Code) Assessment Notes Treatment Notes Treatment Clinical Notes Section Notes 03/26/2024 Allergic rhinitis due to pollen (ICD-10 - J30.1) 03/31/2024 Allergic rhinitis due to pollen (ICD-10 - J30.1) 04/06/2024 Allergic rhinitis due to pollen (ICD-10 - J30.1) 04/13/2024 Allergic rhinitis due to pollen (ICD-10 - J30.1) 04/20/2024 Allergic rhinitis due to pollen (ICD-10 - J30.1) 04/27/2024 Allergic rhinitis due to pollen (ICD-10 - J30.1) 05/03/2024 Allergic rhinitis due to pollen (ICD-10 - J30.1) 05/09/2024 Allergic rhinitis due to pollen (ICD-10 - J30.1) 05/16/2024 Allergic rhinitis due to pollen (ICD-10 - J30.1) 05/25/2024 Allergic rhinitis due to pollen (ICD-10 - [...] anaphylaxis. - Continue medications as listed above. Using nasal sprays PRN. - AIE on hand. Patient was instructed that epinephrine needs to be carried to each immunotherapy visit and should be carried 2 hrs after dosing. - Follow-up in 1 week for SCIT, 6 months for E&M 05/25/2024 Allergic rhinitis due to animal (cat) (dog) hair and dander (ICD-10 - J30.81) Follow allergen avoidance, meds and continue SCIT as an adjunctive treatment to current regimen 06/01/2024 Allergic rhinitis due to pollen (ICD-10 - J30.1) 06/01/2024 Other allergic rhinitis (ICD-10 - J30.89) 06/06/2024 Allergic rhinitis due to pollen (ICD-10 - J30.1) 06/06/2024 Other allergic rhinitis (ICD-10 - J30.89) 06/14/2024 Allergic rhinitis due to pollen (ICD-10 - J30.1) 06/14/2024 Other allergic rhinitis (ICD-10 - J30.89) 06/27/2024 Allergic rhinitis due to pollen (ICD-10 - J30.1) 06/27/2024 Other allergic rhinitis (ICD-10 - J30.89) 07/11/2024 Allergic rhinitis due to pollen (ICD-10 - J30.1) 07/11/2024 Other allergic rhinitis (ICD-10 - J30.89) 08/08/2024 Allergic rhinitis due to pollen (ICD-10 - J30.1) 08/08/2024 Other allergic rhinitis (ICD-10 - J30.89) 08/15/2024 Allergic rhinitis due to pollen (ICD-10 - J30.1) 08/15/2024 Other allergic rhinitis (ICD-10 - J30.89) 09/14/2024 Allergic rhinitis due to pollen (ICD-10 - J30.1) 09/14/2024 Other allergic rhinitis (ICD-10 - J30.89) 09/19/2024 Allergic rhinitis due to pollen (ICD-10 - J30.1) 09/19/2024 Other allergic rhinitis (ICD-10 - J30.89) 09/26/2024 Allergic rhinitis due to pollen (ICD-10 - J30.1) 09/26/2024 Other allergic rhinitis (ICD-10 - J30.89) 10/31/2024 Allergic rhinitis due to pollen (ICD-10 - J30.1) 10/31/2024 Other allergic rhinitis (ICD-10 - J30.89) 11/23/2024 Allergic rhinitis due to pollen (ICD-10 [...] as an adjunctive treatment to current regimen 12/21/2024 Allergic rhinitis due to pollen (ICD-10 - J30.1) 12/21/2024 Other allergic rhinitis (ICD-10 - J30.89) 01/18/2025 Allergic rhinitis due to pollen (ICD-10 - J30.1) 01/18/2025 Other allergic rhinitis (ICD-10 - J30.89) 01/18/2025 Allergic rhinitis due to animal (cat) (dog) hair and dander (ICD-10 - J30.81) 12/21/2024 Allergic rhinitis due to animal (cat) (dog) hair and dander (ICD-10 - J30.81) 11/23/2024 Other allergic rhinitis (ICD-10 - J30.89) Follow allergen avoidance, meds and continue SCIT as an adjunctive treatment to current regimen 10/31/2024 Allergic rhinitis due to animal (cat) (dog) hair and dander (ICD-10 - J30.81) 09/26/2024 Allergic rhinitis due to animal (cat) (dog) hair and dander (ICD-10 - J30.81) 09/19/2024 Allergic rhinitis due to animal (cat) (dog) hair and dander (ICD-10 - J30.81) 09/14/2024 Allergic rhinitis due to animal (cat) (dog) hair and dander (ICD-10 - J30.81) 08/15/2024 Allergic rhinitis due to animal (cat) (dog) hair and dander (ICD-10 - J30.81) 08/08/2024 Allergic rhinitis due to animal (cat) (dog) hair and dander (ICD-10 - J30.81) 07/11/2024 Allergic rhinitis due to animal (cat) (dog) hair and dander (ICD-10 - J30.81) 06/27/2024 Allergic rhinitis due to animal (cat) (dog) hair and dander (ICD-10 - J30.81) 06/14/2024 Allergic rhinitis due to animal (cat) (dog) hair and dander (ICD-10 - J30.81) 06/06/2024 Allergic rhinitis due to animal (cat) (dog) hair and dander (ICD-10 - J30.81) 06/01/2024 Allergic rhinitis due to animal (cat) (dog) hair and dander (ICD-10 - J30.81) 05/25/2024 Other allergic rhinitis (ICD-10 - J30.89) Follow allergen avoidance, meds and continue SCIT as an adjunctive treatment to current regimen 05/16/2024 Allergic rhinitis due to animal (cat) (dog) hair and dander (ICD-10 - J30.81) 05/09/2024 Allergic rhinitis due to animal (cat) (dog) hair and dander (ICD-10 - J30.81) 05/03/2024 Allergic rhinitis due to animal (cat) (dog) hair and dander (ICD-10 - J30.81) 04/27/2024 Allergic rhinitis due to animal (cat) (dog) hair and dander (ICD-10 - J30.81) 04/20/2024 Allergic rhinitis due to animal (cat) (dog) hair and dander (ICD-10 - J30.81) 04/13/2024 Allergic rhinitis due to animal (cat) (dog) hair and dander (ICD-10 - J30.81) 04/06/2024 Allergic rhinitis due to animal (cat) (dog) hair and dander (ICD-10 - J30.81) 03/31/2024 Allergic rhinitis due to animal (cat) (dog) hair and dander (ICD-10 - J30.81) 03/31/2024 Other allergic rhinitis (ICD-10 - J30.89) 04/06/2024 Other allergic rhinitis (ICD-10 - J30.89) 04/13/2024 Other allergic rhinitis (ICD-10 - J30.89) 04/20/2024 Other allergic rhinitis (ICD-10 - J30.89) 04/27/2024 Other allergic rhinitis (ICD-10 - J30.89) 05/03/2024 Other allergic rhinitis (ICD-10 - J30.89) 05/09/2024 Other allergic rhinitis (ICD-10 - J30.89) 05/16/2024 Other allergic rhinitis (ICD-10 - J30.89) 05/25/2024 Other chronic allergic conjunctivitis (ICD-10 - H10.45) Given ocular signs and symptoms I encouraged allergy avoidance measures and meds as above. If symptoms persist, consider adding additional medications including intraocular antihistamine/mast cell stabilizer, PRN and continue SCIT as an adjunctive measure 06/01/2024 Other chronic allergic conjunctivitis (ICD-10 - H10.45) 06/06/2024 Other chronic allergic conjunctivitis (ICD-10 - H10.45) 06/14/2024 Other chronic allergic conjunctivitis (ICD-10 - H10.45) 06/27/2024 Other chronic allergic conjunctivitis (ICD-10 - H10.45) 07/11/2024 Other chronic allergic conjunctivitis (ICD-10 - H10.45) 08/08/2024 Other chronic allergic conjunctivitis (ICD-10 - H10.45) 08/15/2024 Other chronic allergic conjunctivitis (ICD-10 - H10.45) 09/14/2024 Other chronic allergic conjunctivitis (ICD-10 - H10.45) 09/19/2024 Other chronic allergic conjunctivitis (ICD-10 - H10.45) 09/26/2024 Other chronic allergic conjunctivitis (ICD-10 - H10.45) 10/31/2024 Other chronic allergic conjunctivitis (ICD-10 - H10.45) 12/21/2024 Other chronic allergic conjunctivitis (ICD-10 - H10.45) 11/23/2024 Other chronic allergic conjunctivitis (ICD-10 - H10.45) Given ocular signs and symptoms I encouraged allergy avoidance measures and meds as above. If symptoms persist, consider adding additional medications including intraocular antihistamine/mast cell stabilizer, PRN and continue SCIT as an adjunctive measure 01/18/2025 Other chronic allergic conjunctivitis (ICD-10 - H10.45) 11/23/2024 Rash and other nonspecific skin eruption (ICD-10 - R21) Miguel reports a rash located on the base of her scalp that has been present for several years. Reports diagnosis of psoriasis after evaluation by [facility]. Currently using a couple creams PRN for flares. Stable at this time. - Previously discussed use of all free and clear products, suggested Vanicream line. 05/25/2024 Rash and other nonspecific skin eruption (ICD-10 - R21) Miguel reports a rash located on the base of her scalp that has been present for several years. Reports diagnosis of psoriasis after evaluation by [facility]. Currently using a couple creams PRN for flares. SNo interval rashes since last visit. - Previously discussed use of all free and clear products, suggested Vanicream line. 05/03/2024 Other chronic allergic conjunctivitis (ICD-10 - H10.45) 05/09/2024 Other chronic allergic conjunctivitis (ICD-10 - H10.45) 05/16/2024 Other chronic allergic conjunctivitis (ICD-10 - H10.45) 04/27/2024 Other chronic allergic conjunctivitis (ICD-10 - H10.45) 04/13/2024 Other chronic allergic conjunctivitis (ICD-10 - H10.45) 04/20/2024 Other chronic allergic conjunctivitis (ICD-10 - H10.45) 03/31/2024 Other chronic allergic conjunctivitis (ICD-10 - H10.45) 04/06/2024 Other chronic allergic conjunctivitis (ICD-10 - H10.45) 05/25/2024 Essential (primary) hypertension (ICD-10 - I10) Miguel is currently taking a beta tara for blood pressure control. We discussed the risk of receiving immunotherapy while taking beta blockers. Beta blockers are not contraindicated in immunotherapy, but make the treatment of systemic reactions more difficult. Instructed to hold beta tara prior to receiving immunotherapy and then take 2 hours after SCIT 11/23/2024 Essential (primary) hypertension (ICD-10 - I10) Miguel is currently taking a beta tara for blood pressure control. We discussed the risk of receiving immunotherapy while taking beta blockers. Beta blockers are not contraindicated in immunotherapy, but make the treatment of systemic reactions more difficult. Instructed to hold beta tara prior to receiving immunotherapy and then take 2 hours after SCIT 04/06/2024 Other 04/13/2024 Other 04/20/2024 Other 04/27/2024 Other 05/03/2024 Other 05/09/2024 Other 05/16/2024 Other Plan Of Treatment Next Appt Details Provider Name:Umer HHarry Moss , 02/15/2025 01:00:00 PM, [address] [facility], [address], [address], Insurance Providers Payer Name Payer Address Payer Phone Subscriber Number Group Number Insured Name Patient Relationship to Insured Coverage Start Date Coverage End Date [facility] [address] [place] [address] [id number] WatsonMiguel alberto Self - patient is the insured Medical (General) History Medical History History ICD Code hypertension hyperlipedmia pre diabetic IBS Surgical History Surgery Date(Month/Year) breast reduction 1979 two c-sections blepharoplasty 05/2024
--- OUTSIDE RECORDS SUMMARY | 2025-02-01 08:35 | XMS_ITS | Encounter Summary ---
Author Organization [facility] Address [address] [place] [address] Care Team Providers Care Sock Turner Name Role Phone Basim Yip DO Primary Care Provider [phone] Encounter Details Date Type Department Care Team (Late st Contact Info) Description 02/16/2001 Outpatient Historical [facility] [employer] [facility] [id number] [facility] [address] [address] Kris Galeas MD [address] [place] [address] Social History Tobacco Use Types Packs/Day Years Used Date Smoking Tobacco: Never Assessed Comments Unknown Sex and Gender Information Value Date Recorded Sex Assigned at Female 07/02/2024 9:51 AM CDT Legal Sex Female 4:46 AM 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
--- OUTSIDE RECORDS SUMMARY | 2025-02-01 08:35 | XMS_ITS | CONTINUITY OF CARE DOCUMENT ---
Author Name shanita diehl Address Unknown Organization [facility] Address [address] [place] [address] Phone [phone] Care Team Providers Care Refrigeration Plant Operator Name Role Phone Jesse Peres MD Unavailable DONY JIMENEZ MD RETIRED Unavailable [phone] DONY JIMENEZ MD RETIRED Unavailable [phone] PROBLEMS Condition Status Date Provider Notes CHEST PAIN active Jesse Peres MD HYPERTENSION, ESSENTIAL active Jesse Peres MD HYPERCHOLESTEROLEMIA active Jesse Peres MD FAMILY HX. OF OTHER CARDIOVASCULAR DISEASE active 2007 Jesse Peres MD ENCOUNTERS Date Type Provider Location Encounter Diag nosis 2 - 2 In-person encounter Office Visit Jesse Durant Office 8 - 9 In-person encounter Office Visit Jesse Gutierrezvey Office CHEST PAINHYPERTENSION, ESSENTIALHYPERCHOLESTEROLEMIAFAMILY HX. OF OTHER CARDIOVASCULAR DISEASE VITAL SIGNS Date Observation Value Provider blood pressure, diastolic 70 mm[Hg] Ariana Purcell blood pressure, systolic 104 mm[Hg] Gloria Purcell pulse rate 65 /min Nery rose oxygen saturation, oximetry 98 % Nery Purcell respiratory rate E&M 16 /min Doc Purcell weight E&M 127.4 [lb_av] Nery wilburn blood pressure, diastolic 76 mm[Hg] Ariana Purcell blood pressure, systolic 116 mm[Hg] Gloria Purcell pulse rate 73 /min Nery rose oxygen saturation, oximetry 97 % Nery Purcell respiratory rate E&M 16 /min Doc Purcell weight E&M 127.8 [lb_av] Nery wilburn HISTORY OF MEDICATION USE Medication Status Instructions Dates Provider Indications Com ments CRANBERRY PILLS active once daily Nery Purcell MULTIVITAMINS ORAL CAPSULE active ONE TAB. DAILY Nery Purcell ADVIL CAPSULE active as needed Nery Purcell WHEAT BRAN active once daily Nery Purcell CALCIUM CARBONATE TABLET active one tab. daily Nery Purcell PROTONIX 20 MG ORAL TABLET DELAYED RELEASE active ONE TAB.every other day Nery Purcell LOPRESSOR TABS (METOPROLOL TARTRATE) active 20 mg once daily Nery Purcell SOCIAL HISTORY Date Observation Value Provider social history reviewed E&M reviewed Jesse Peres MD social history E&M Marital Statu s: L rose with family/friends E thnicity: Jesse Peres MD drug use none Jesse Peres MD social history reviewed E&M reviewed Jesse ePres MD physical exercise, f requency, days per week yes [employer] caffeine use, averag e drinks per day yes [employer] alcohol use, average drinks per day social basis only [employer] smoking status Quit [facility] MENTAL STATUS Date Observation Value Provider assessment of judgme nt and insight E&M Alert and oriented to time, place and person. Mood and affect are normal. Jesse Peres MD assessment of judgme nt and insight E&M Alert and oriented to time, place and person. Mood and affect are normal. Jesse Peres MD INSURANCE PROVIDERS Payer name Policy type / Coverage type Harvey red republican ID [facility] [id number] TREATMENT PLAN Date Name Performer follow up Jesse Peres MD follow up:controlled. Jesse loyd MD follow up:treating w ith diet. to follow up with Dr aviles. Jesse Peres MD follow up:with a neg ative stress test her pains are not due to obstructive cad. i relayed this to her. s he thinks this is due to 'gas'. Jesse Peres MD new pt Jesse Peres MD new pt:on diet. Jesse Peres MD new pt: O rders: E KG (CPT-69884) C omplete Echo (CPT-50541) w ill need a stress test and an echo. Jesse Peres MD new pt:controlled. Jesse Peres MD Date Name Stress Test - Nuclea r Complete Echo HISTORY OF PROCEDURES Procedure Date Procedure Name Provider Procedure Notes S tatus EKG Jesse Peres MD completed
--- OUTSIDE RECORDS SUMMARY | 2025-02-01 08:35 | XMS_ITS | Encounter Summary ---
Author Organization [facility] Address [address] [place] [address] Care Team Providers Care Vp Transportation Name Role Phone Basim Yip DO Primary Care Provider [phone] Encounter Details Date Type Department Care Team (Late st Contact Info) Description 02/25/2000 Outpatient Historical [facility] - Medical [place] [address] [facility] [address] [facility] [address] [place] [address] Kevin Del Rosario MD [id number] [place] [address] Social History Tobacco Use Types Packs/Day Years Used Date Smoking Tobacco: Never Assessed Comments Unknown Sex and Gender Information Value Date Recorded Sex Assigned at Female 07/02/2024 9:51 AM CDT 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
--- OUTSIDE RECORDS SUMMARY | 2025-02-01 08:35 | XMS_ITS | Encounter Summary ---
Author Organization [facility] Address [address] [place] [address] Care Team Providers Care Industrial Ecologist Name Role Phone Basim Yip DO Primary Care Provider [phone] Encounter Details Date Type Department Care Team (Late st Contact Info) Description 02/04/2007 Outpatient Historical [facility] LIFE INSURANCE SALES - [address] [place] [address] Jewel Harrington MD [address] [place] [address] [place] [address] Social History Tobacco Use Types Packs/Day Years Used Date Smoking Tobacco: Never Assessed Comments Unknown Sex and Gender Information Value Date Recorded Sex Assigned at Female 07/02/2024 9:51 AM CDT 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
--- OUTSIDE RECORDS SUMMARY | 2025-02-01 08:35 | XMS_ITS | Clinical Summary ---
Author Organization [facility] Address [address] [place] [address] Care Team Providers Care Guest Service Agent Name Role Phone Emerson Yipdie Aquilino YANG Primary Care Provider [phone] Allergies Active Allergy Reactions Criticality Noted Date Comments Meperidine Nausea and Vomiting Low 05/24/2009 Medications metoprolol tartrate (LOPRESSOR) 50 mg Oral Tab Take 25 mg by mouth one time only. Active multivitamin (DAILY-JABARI) tablet Take 1 Tablet by mouth daily. Active atorvastatin (LIPITOR) 10 mg tablet Take 10 mg by mouth daily. 0 9 Active FLUoxetine (PROzac) 20 mg capsule TAKE 1 CAPSULE BY MOUTH EVERY DAY 1 9 Active pantoprazole (PROTONIX) 40 mg Tablet, Delayed Release (E.C.) TAKE 1 TABLET BY MOUTH EVERY DAY IN THE MORNING 1 Active hydroCHLOROthia zide (HYDRODIURIL) 12.5 mg tablet TAKE 1 TABLET BY MOUTH DAILY NEEDED FOR DIURETIC. 1 Active rOPINIRole (REQUIP) 0.25 mg tablet PLEASE SEE ATTACHED FOR DETAILED DIRECTIONS 3 Active montelukast (SINGULAIR) 10 mg tablet TAKE 1 TABLET BY MOUTH EVERY DAY FOR ALLERGIES 3 Active fluticasone propionate (FLONASE) 50 mcg/spray [place], Suspension nasal inhaler SPRAY 2 SPRAYS INTO EACH NOSTRIL DAILY 3 Active ALPRAZolam (Xanax) 0.5 mg tablet 1 tab(s) orally PRN Active cetirizine (ZyrTEC) 10 mg tablet 1 tab(s) orally once a day for 30 days Active Active Problems Problem Noted Date Diagnosed Date Pelvic pain in female 05/05/2012 Resolved Problems Problem Noted Date Diagnosed Date Resolved Date Postmenopausal bleeding 05/22/201107/12 Encounters Date Type Department Care Team Description 12/28/2024 External Device Data ST[facility] ABSTRACTION Provider, Abstract 12/17/2024 External Device Data [place] ABSTRACTION Provider, Abstract 12/16/2024 External Device Data [place] ABSTRACTION Provider, Abstract 12/14/2024 External Device Data [place] ABSTRACTION Provider, Abstract 12/13/2024 External Device Data [place] ABSTRACTION Provider, Abstract 11/29/2024 External Device Data ST[place] ABSTRACTION Provider, Abstract from Last 3 Months Family History Medical History Relation Name Comments Heart Disease Father Stroke Father Healthy Mother Breast Cancer Neg Hx Relation Name Status Comments Father Mother Other Social History Tobacco Use Types Packs/Day Years Used Date Smoking Tobacco: Some Days Smokeless Tobacco: Never Tobacco Cessation:Ready to Q uit: Not Asked; Counseling Given: Not Answered Alcohol Use Standard Drinks/Week Comments Yes 0 (1 standard drink = 0.6 oz pur e alcohol) occasional Comments No Sex and Gender Information Value Date Recorded Sex Assigned at Female 07/02/2024 9:51 AM CDT Legal Sex Female 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 AND 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 Gender Identity Female 07/02/2024 9:51 AM CDT Sexual Orientation Asexual 07/02/2024 9: 51 AM CDT Last Filed Vital Signs Vital Sign Reading Time Taken Comments Blood Pressure 112/75 06/29/2024 2:19 PM CDT Pulse 94 06/29/2024 2:19 PM CDT Temperature 36.6 C (97.9 F) 10/16/2015 2:31 PM RUBBER AND POUNDER Respiratory Rate 16 10/16/2015 2:50 PM RUBBER AND POUNDER Oxygen Saturation 99% 06/29/2024 2:19 PM CDT Inhaled Oxygen Concentration - - Weight 69.9 kg (154 lb) 06/29/2024 2:19 PM CDT Height 157.5 cm (5' 2 ) 06/29/2024 2:19 PM CDT Body Mass Index 28.17 06/29/2024 2:19 PM CDT Plan of Treatment Health Maintenance Due Date Last Done Comments Pre-Diabetes and Diabetes Screening 1960 DTAP/TDAP/TD VACCINES (1 - Tdap) 1977 PNEUMOCOCCAL VACCINE 50+ YEA RS (1 of 2 - PCV) 1977 FIT-DNA Q 3 years 2003 FIT/FOBT Q 1 year 2003 Flex Sig/CT Colonography Q 5 years 2003 ZOSTER VACCINE (1 of 2) 2008 OSTEOPOROSIS SCREENING 2023 INFLUENZA VACCINE (#1) 2024 BREAST CANCER SCREENING 06/24/2025 06/24/20 24, 04/20/2023, 01/24/2022, Additional history exists COLORECTAL SCREENING 10/16/2025 10/16/2015, 10/16/2015, 03/01/2009 Colorectal Cancer Screening 10/16/2025 RSV VACCINE (60+ or ) (1 - 1-dose 75+ series) 2033 Procedures Procedure Name Priority Date/Time Associated Diagnosis Comments MAMMO 3D FARIDEH SCREEN BILAT W OR WO CAD Routine 06/24/2024 2:36 PM CDT Visit for screening mammogram from Last 3 Months or Most Recently Relevant to Health Maintenance Results * MAMMO 3D FARIDEH SCREEN BILAT W OR WO CAD (06/24/2024 2:36 PM CDT) Anatomical Region Laterality Modality Breast Bilateral Mammography 06/24/2024 2:36 PM CDT Impressions 06/24/2024 4:07 PM CDT IMPRESSION: No evidence of breast malignancy. RECOMMENDATION: Screening mammogram in one year. OVERALL FINAL ASSESSMENT: BI-RADS CATEGORY 1 - Negative Results will be sent to patient via lay letter by mail. DICTATION LOCATION: [facility] Narrative 06/24/2024 4:07 PM CDT BILATERAL DIGITAL SCREENING MAMMOGRAM WITH TOMOSYNTHESIS WITH COMPUTER AIDED DETECTION EXAM DATE: 06/24/2024 2:36 PM INDICATION: Breast cancer screening. 63 year old asymptomatic female. History provided at time of exam: No family history of breast cancer. TECHNIQUE: Low Dose full field Digital Breast tomosynthesis examination was performed with 2D and 3D acquisitions. Examination is read in conjunction with computer aided detection. Bilateral CC and MLO views were performed. COMPARISON: 04/20/2023, 01/24/2022, 01/11/2022, 09/12/2019 BREAST COMPOSITION: There are scattered areas of fibroglandular density. FINDINGS: No suspicious microcalcifications, architectural distortion, or suspicious masses. No evidence of malignancy in the right or left breast. No significant interval change. CAD was used in interpretation. Procedure Note Danielle Mays MD - 06/24/2024 BILATERAL DIGITAL SCREENING MAMMOGRAM WITH TOMOSYNTHESIS WITH COMPUTER AIDED DETECTION EXAM DATE: 06/24/2024 2:36 PM INDICATION: Breast cancer screening. 63 year old asymptomatic female. History provided at time of exam: No family history of breast cancer. TECHNIQUE: Low Dose full field Digital Breast tomosynthesis examination was performed with 2D and 3D acquisitions. Examination is read in conjunction with computer aided detection. Bilateral CC and MLO views were performed. COMPARISON: 04/20/2023, 01/24/2022, 01/11/2022, 09/12/2019 BREAST COMPOSITION: There are scattered areas of fibroglandular density. FINDINGS: No suspicious microcalcifications, architectural distortion, or suspicious masses. No evidence of malignancy in the right or left breast. No significant interval change. CAD was used in interpretation. IMPRESSION: No evidence of breast malignancy. RECOMMENDATION: Screening mammogram in one year. OVERALL FINAL ASSESSMENT: BI-RADS CATEGORY 1 - Negative Results will be sent to patient via lay letter by mail. DICTATION LOCATION: [facility] Jewel Harrington MD MAMMO ORDERABLES Final Resul t from Last 3 Months or Most Recently Relevant to Health Maintenance Insurance RX [employer] BCBS BLUE ACCESS/TRUE LIN TV PPO Advance Directives For more information, please contact: [phone] * Full Code (Latest Code Status on File) Date Activated Date Inactivated Comments 10/16/2015 1:34 PM 10/16/2015 5:57 PM Care Teams Guest Service Agent Relationship Specialty Start Date End Date Basim Yip DO [address] [facility] [address] [place] [address] PCP - General Internal Medicine 01/09/22
--- OUTSIDE RECORDS SUMMARY | 2025-02-01 08:35 | XMS_ITS | Encounter Summary ---
Author Organization [employer] Address [address] [place] [address] Care Team Providers Care Pillow Filler Name Role Phone Basim Yip DO Primary Care Provider [phone] Encounter Details Date Type Department Care Team (Latest Contact Info) Description 03/05/2000 Outpatient Historical HIS 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
--- OUTSIDE RECORDS SUMMARY | 2025-02-01 08:35 | XMS_ITS | Encounter Summary ---
Author Organization [employer] Address [address] [place] [address] Care Team Providers Care Plant Controller Name Role Phone Basim Yip Primary Care Provider Encounter Details Date Type Department Care Team (Late st Contact Info) Description 12/13/2007 Outpatient Historical HIS [facility] ADRIANE Ch[place], Kris Elder MD NO ADDRESS ON FILE Abdominal Pain Social History Tobacco Use Types Packs/Day Years Used Date Smoking Tobacco: Never Assessed Comments Unknown Sex and Gender Information Value Date Recorded Sex Assigned at Female 07/02/2024 9:51 AM CDT Legal Sex Female 4:46 AM HOSPICE RN Gender Identity Female 07/02/2024 9:51 AM CDT Sexual Orientation Asexual 07/02/2024 9: 51 AM CDT documented as of this encounter Plan of Treatment Not on file documented as of this encounter Procedures Procedure Name Priority Date/Time Associated Diagnosis Comments TSH WITH REFLEX FT4 AND FT3 Routine 12/13/2007 12:25 PM HOSPICE RN HEPATITIS C AB W/CONFIRMATION Routine 12/13/2007 12:25 PM HOSPICE RN HEPATITIS B SURFACE ANTIGEN Routine 12/13/2007 12:25 PM HOSPICE RN HEPATITIS B CORE IGM Routine 12/13/2007 12:25 PM HOSPICE RN HEPATITIS A IGM Routine 12/13/2007 12:25 PM HOSPICE RN T4 FREE Routine 12/13/2007 12:25 PM HOSPICE RN documented in this encounter Results * HEPATITIS B CORE IGM (12/13/2007 12:25 PM HOSPICE RN) HEPATITIS B CORE IGM NON-REACTI VE NON-REACT ISAIAS [facility] Comment: Lab test performed by: [facility] [place] [address] [place] [address] MARILY POSEY MD Blood specimen (specimen) 12/13/2007 12:25 PM HOSPICE RN 12/13/2007 12:34 PM HOSPICE RN Kris Chino MD CHEMISTRY ORDERABLES Final Res ult Performing Organization Address [facility] Co de Phone Number [facility] [address] [address] * HEPATITIS C AB WITH CONFIRMATION BY RIBA (12/13/2007 12:25 PM HOSPICE RN) Pathologist [facility] HEPATITIS C AB NON-REACTI VE NON-REACT ISAIAS [facility] SIGNAL TO CUT OFF 0.05 <1.00 [facility] Comment: Lab test performed by: [facility] [place] [id number] [place] [address] MARILY POSEY MD Blood specimen (specimen) 12/13/2007 12:25 PM HOSPICE RN 12/13/2007 12:34 PM HOSPICE RN Kris Chino MD CHEMISTRY ORDERABLES Final Res ult Performing Organization Address City/[facility]/ZIP Co de Phone Number [facility] [address] [address] * HEPATITIS A IGM (12/13/2007 12:25 PM HOSPICE RN) Pathologist [facility] HEPATITIS A IGM NON-REACTI VE NON-REACT ISAIAS [facility] Comment: Lab test performed by: [facility] [address] [place] [address] MARILY POSEY MD Blood specimen (specimen) 12/13/2007 12:25 PM HOSPICE RN 12/13/2007 12:34 PM HOSPICE RN Kris Chino MD CHEMISTRY ORDERABLES Final Res ult Performing Organization Address [facility]/ZIP Co de Phone Number [facility] [address] [place] [address] * HEPATITIS B SURFACE ANTIGEN (12/13/2007 12:25 PM HOSPICE RN) HEPATITIS B SURFACE AG NON-REACTI VE NON-REACT ISAIAS [facility] Comment: Lab test performed by: [facility] [address] [place] [address] MARILY POSEY MD Blood specimen (specimen) 12/13/2007 12:25 PM HOSPICE RN 12/13/2007 12:34 PM HOSPICE RN Kris Chino MD CHEMISTRY ORDERABLES Final Res ult Performing Organization Address [facility] Co de Phone Number [facility] [address] [place] [address] * TSH WITH REFLEX FT4 AND FT3 (12/13/2007 12:25 PM HOSPICE RN) Pathologist [facility] TSH 1.34 0.27 - 4.20 uU/mL [facility] Blood specimen (specimen) 12/13/2007 12:25 PM HOSPICE RN 12/13/2007 12:33 PM HOSPICE RN Kris Chino MD CHEMISTRY ORDERABLES Final Res ult Performing Organization Address City/[facility] Co de Phone Number [facility] [address] [place] [address] * T4 FREE (12/13/2007 12:25 PM HOSPICE RN) T4 FREE 1.0 0.9 - 1.7 ng/dL [facility] Blood specimen (specimen) 12/13/2007 12:25 PM HOSPICE RN 12/13/2007 12:33 PM HOSPICE RN us Kris Chino MD CHEMISTRY ORDERABLES Final Res ult [facility] [address] [place] [address] documented in this encounter Visit Diagnoses Diagnosis Abdominal pain documented in this encounter Additional Health Concerns Infection Onset Date Last Indicated Resolved Time C Diff 05/03/2018 05/03/2018 02/25/2023 1:00 AM CDT documented as of this encounter Care Teams Plant Controller Relationship Specialty Start Date End Date Basim Yip DO [address] [facility] [address] [place] [address] PCP - General Internal Medicine 01/09/22 documented as of this encounter
--- OUTSIDE RECORDS SUMMARY | 2025-02-01 08:35 | XMS_ITS | Encounter Summary ---
Author Organization [facility] Address [address] [place] [address] Care Team Providers Care Ms Sql Dba Name Role Phone Basim Yip DO Primary Care Provider [phone] Encounter Details Date Type Department Care Team (Late st Contact Info) Description 02/18/2000 Outpatient Historical [facility] DOG SITTER - Medical [place] [address] [place] [address] [facility] [address] [address] Kris Galeas MD [address] [place] [address] Social History Tobacco Use Types Packs/Day Years Used Date Smoking Tobacco: Never Assessed Comments Unknown Sex and Gender Information Value Date Recorded Sex Assigned at Female 07/02/2024 9:51 AM CDT Legal Sex Female 4:46 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
--- OUTSIDE RECORDS SUMMARY | 2025-02-01 08:35 | XMS_ITS | Encounter Summary ---
Author Organization [employer] Address 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
--- OUTSIDE RECORDS SUMMARY | 2025-02-01 08:35 | XMS_ITS ---
Author Organization [facility] [employer] [place] ([address]) Address [address] [address] Care Team Providers Care Groundskeeping Yardman Name Role Phone Goyo Ryan Primary Care Provider UnavailLeslie Núñez Unavailable [phone] Ina Valdez Unavailable Unavailable Umer Moss Unavailable [phone] REASON FOR VISIT SCIT - Traditional Schedule Allergy Immunotherapy (Week ) Medications Medication SIG (Take, Route, Frequency, Duration) Notes Start Date End Date Status FLUoxetine HCl 20 MG 1 tab(s) orally once a day for 30 day(s) Active Pantoprazole Sodium 40 MG 1 tab(s) orally once a day for 30 day(s) Active Atorvastatin Calcium 10 MG 1 tab(s) orally once a day for 30 day(s) Active OLOPATADINE NASAL 665 MCG/INH 2 SPRAY(S) INTRANASALLY 2 TIMES A DAY for 90 DAYS *Please review for potential replacement for e-prescription and drug interaction check* Active rOPINIRole HCl 0.25 MG 1 tab(s) orally 3 times a day for 30 day(s) Not-Taking Dicyclomine HCl 10 MG 2 cap(s) orally PRN Active Metoprolol Tartrate 25 MG 1 tab(s) orally 2 times a day for 30 day(s) Active Flonase Allergy Relief 50 MCG/ACT 2 spray(s) intranasally (avoid nasal septum) twice daily for 30 day(s) Active Xiidra 5 % 1 gtt in each eye 2 times a day Active Xanax 0.5 MG 1 tab(s) orally PRN Active SIT (Traditional) variable - see record per schedule subcutaneous per schedule for 999 days Active Cetirizine HCl 10 MG 1 tab(s) orally once a day for 30 days Active Fluticasone Propionate 50 MCG/ACT 2 spray(s) in each nostril BID for 30 days Active Montelukast Sodium 10 MG 1 tab(s) orally once a day Active hydroCHLOROthiazide 50 MG 1 tab(s) orally once a day Active CETIRIZINE 10 mg 1 tab(s) orally once a day for 30 days Active FLUTICASONE NASAL 50 mcg/inh 2 spray(s) in each nostril daily for 30 days As needed Active NASAL WASHES N/A as directed intranasally as needed for 30 days Active MONTELUKAST 10 mg 1 tab(s) orally once a day Active OLOPATADINE NASAL 665 mcg/inh 2 spray(s) intranasally 2 times a day for 30 days Active EpiPen 2-Gabe 0.3 mg as directed intramuscularly once for 30 days Active Metoprolol Tartrate 25 MG 1 tab(s) orally 2 times a day for 30 day(s) Not-Taking Encounters Encounter Location Date Provider Diagnosis [facility] [address] [place] [address] [address] [place] [address] 01/18/2025 Umer Moss Allergic rhinitis du e to pollen J30.1 ; Other allergic rhinitis J30.89 ; Allergic rhinitis due to animal (cat) (dog) hair and dander J30.81 and Other chronic allergic conjunctivitis H10.45 Assessments Encounter Date Diagnosis (ICD Code) Assessment Notes Treatment Notes Treatment Clinical Notes Section Notes 01/18/2025 Allergic rhinitis due to pollen (ICD-10 - J30.1) 01/18/2025 Other allergic rhinitis (ICD-10 - J30.89) 01/18/2025 Allergic rhinitis due to animal (cat) (dog) hair and dander (ICD-10 - J30.81) 01/18/2025 Other chronic allergic conjunctivitis (ICD-10 - H10.45) Plan Of Treatment Next Appt Details Follow Up: As scheduled, [place] son: Provider Name:Umer Moss , 02/15/2025 01:00:00 PM, [facility] [address], [place], [address], Progress Notes * Miguel AHUJA MDOB:1960 ( 64 yo F)Acc No.[id number]:01/18/2025 SCIT-Aeroallergen Patient: Miguel BAEZ Provider: Patrice Moss MD :1960 A ge:64 Y S ex:Female Date:01/18/2025 Address:[address] [place] [address] , [facility] Pcp:Goyo Ryan Subjective: * Chief Complaints: * S CIT - Traditional Schedule Allergy Immunotherapy (Week ) * HPI: * Introduction: The patient is here for scheduled immunotherapy. Please see the attached specialty form regarding the specifics of the administration of these vaccines. As per our protocol, they must undergo a screening health questionnaire (medication changes, reaction(s) to last immunotherapy dose(s), current health status, ACT (if appropriate), self-injectable epinephrine on patient(?) and peak flow (if appropriate)). Also, the patient must wait in our office for 30 minutes after receiving the vaccine(s). Furthermore, every patient must have an epinephrine pen (self-injectable) with them at the time of administration--and carry if for the following 1.5 hours after they leave our office. The patient must also have taken their antihistamine the day of the injection, preferably 2 hours prior. The consent form for SCIT (subcutaneous immunotherapy) is on file. * Medical History: * Surgical History: * Hospitalization/Major Diagno stic Procedure: * Medications: T akingEpiPen 2-Gabe 0.3 mg kit as directed intramuscularly once CETIRIZINE 10 mg tablet 1 tab(s) orally once a day FLUTICASONE NASAL 50 mcg/inh spray 2 spray(s) in each nostril daily As neededNASAL WASHES N/A 1 quart of sterilized tap water or distilled water, 1 tsp NaCl, 1 pinch of baking soda as directed intranasally as needed MONTELUKAST 10 mg tablet 1 tab(s) orally once a day OLOPATADINE NASAL 665 mcg/inh spray 2 spray(s) intranasally 2 times a day EpiPen 2-Gabe 0.3 mg kit as directed intramuscularly once SIT (Traditional) variable - see record variable - see record per schedule subcutaneous per schedule Cetirizine HCl 10 MG Tablet 1 tab(s) [...] replacement for e-prescription and drug interaction check*Taking EpiPen 2-Gabe 0.3 mg kit as directed intramuscularly once Taking CETIRIZINE 10 mg tablet 1 tab(s) orally once a day Taking FLUTICASONE NASAL 50 mcg/inh spray 2 spray(s) in each nostril daily As neededTaking NASAL WASHES N/A 1 quart of sterilized tap water or distilled water, 1 tsp NaCl, 1 pinch of baking soda as directed intranasally as needed Taking MONTELUKAST 10 mg tablet 1 tab(s) orally once a day Taking OLOPATADINE NASAL 665 mcg/inh spray 2 spray(s) intranasally 2 times a day Taking EpiPen 2-Gabe 0.3 mg kit as directed intramuscularly once Taking SIT (Traditional) variable - see record variable - see record per schedule subcutaneous per schedule Taking Cetirizine HCl 10 MG Tablet 1 [...] potential replacement for e-prescription and drug interaction check*Not-Taking/PRNrOPINIRole HCl 0.25 MG Tablet 1 tab(s) orally 3 times a day Metoprolol Tartrate 25 MG Tablet 1 tab(s) orally 2 times a day Not-Taking/PRN rOPINIRole HCl 0.25 MG Tablet 1 tab(s) orally 3 times a day Not-Taking/PRN Metoprolol Tartrate 25 MG Tablet 1 tab(s) orally 2 times a day Objective: * Vitals: Assessment: * Assessment: 1. A llergic rhinitis due to pollen - J30.1 (Primary) 2 . O ther allergic rhinitis - J30.89 3 . A llergic rhinitis due to animal (cat) (dog) hair and dander - J30.81 4 . O ther chronic allergic conjunctivitis - H10.45 Plan: * Treatment: * Procedure Codes: 9 5117 IMMUNOTHERAPY INJECTIONS * Preventive Medicine: Counseling: E xercise A void heavy lifting on days of allergy immunotherapy. M edication instruction: I njectable epinephrine education and instruction w/ discussion of signs and symptoms of anaphylaxis and reasons to seek urgent or emergent care, Watch for side effects of prescribed medications. E ducation: A ble to return demonstration of self-injectable epinephrine. * Follow Up: A s scheduled * Billing Information: * Visit Code: * Procedure Codes: 65891 IMMUNOTHERAPY INJECTIONS. * Sign off status: Completed true * Provider: Patrice Moss MD Date: 0 01/18/2025 Generated for Nimco knight/Jovany/Jackie on: 0 02/01/2025 08:34 AM CDT History and Physical Notes * HPI (History of Present Illness) Category Sub-Category Detail Notes Category Not es *Introduction The patient is here for scheduled immunotherapy. Please see the attached specialty form regarding the specifics of the administration of these vaccines. As per our protocol, they must undergo a screening health questionnaire (medication changes, reaction(s) to last immunotherapy dose(s), current health status, ACT (if appropriate), self-injectable epinephrine on patient(?) and peak flow (if appropriate)). Also, the patient must wait in our office for 30 minutes after receiving the vaccine(s). Furthermore, every patient must have an epinephrine pen (self-injectable) with them at the time of administration--and carry if for the following 1.5 hours after they leave our office. The patient must also have taken their antihistamine the day of the injection, preferably 2 hours prior. The consent form for SCIT (subcutaneous immunotherapy) is on file.
--- OUTSIDE RECORDS SUMMARY | 2025-02-01 08:35 | XMS_ITS | Encounter Summary ---
Author Organization [facility] Address 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 - Medical [place] [id number] [facility] [address] [address] Bill Dudley Social History Tobacco Use Types Packs/Day Years Used Date Smoking Tobacco: Never Assessed Comments Unknown Sex and Gender Information Value Date Recorded Sex Assigned at Female 07/02/2024 9:51 AM CDT 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
--- OUTSIDE RECORDS SUMMARY | 2025-02-01 08:35 | XMS_ITS | Encounter Summary ---
Author Organization [facility] Address [address] [place] [address] Care Team Providers Care Button Station Worker Name Role Phone Basim Yip DO Primary Care Provider [phone] Encounter Details Date Type Department Care Team (Late st Contact Info) Description 11/30/2001 Outpatient Historical [facility] EMBROIDERY MACHINE OPERATOR - Medical [place] [id number] [facility] [address] [address] Kris Galeas MD [address] [place] [address] Social History Tobacco Use Types Packs/Day Years Used Date Smoking Tobacco: Never Assessed Comments Unknown Sex and Gender Information Value Date Recorded Sex Assigned at Female 07/02/2024 9:51 AM CDT Legal Sex Female 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
--- OUTSIDE RECORDS SUMMARY | 2025-02-01 08:35 | XMS_ITS | Clinical Summary ---
Author Organization [facility] Address [address] [place] [address] Care Team Providers Care White Hat Hacker Name Role Phone Basim Yip DO Primary Care Provider [phone] Source Comments [facility],non-owned Affiliates and Associated Physician Practices is amultiple site organization consisting of ambulatory clinics and hospital sitesin [place], [place], [place] and [place]. This disclosure is being madepursuant to the Care Everywhere program and may not contain all information available regarding this patient. Last updated 18.[facility] Allergies Active Allergy Reactions Criticality Noted Date Comments Demerol 04/10/2010 N&V Medications * Be aware that medications may not be up to date on this document. Alwaysverify current medications with the patient. hydrocodone-acet aminophen (VICODIN) 5-500 MG tablet Take 1-2 Tabs by mouth 4 times daily as needed for Pain. 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 Gender Identity Not on file Sexual Orientation Not on file Last Filed Vital Signs Vital Sign Reading Time Taken Comments Blood Pressure 126/91 04/10/2010 3:30 PM CDT Pulse 53 04/10/2010 3:30 PM CDT Temperature 36.7 C (98.1 F) 04/10/2010 12:03 PM CDT Respiratory Rate 16 04/10/2010 3:30 PM CDT Oxygen Saturation 85% 04/10/2010 3:30 PM CDT Inhaled Oxygen Concentration - - Weight 61.2 kg (135 lb) 04/10/2010 12:03 PM CDT Height 160 cm (5' 3 ) 04/10/2010 12:03 PM CDT Body Mass Index 23.91 04/10/2010 12:03 PM CDT Plan of Treatment Health Maintenance Due Date Last Done Comments BONE DENSITY TESTING 1960 COLOGUARD (AGES 45-75) - COL ON CA SCREENING 1960 COLON MONITORING 1960 COLONOSCOPY - COLON CA SCREENING 1960 CT COLONOGRAPHY - COLON CA SCREENING 1960 Colorectal Cancer Screening 1960 FIT - COLON CA SCREENING 1960 FLEX SIG - COLON CA SCREENING 1960 LIPID TESTING 1960 MAMMOGRAM 1960 HEPATITIS C SCREENING 11/12/1976 DTAP/TDAP/TD VACCINES (1 - Tdap) 1977 PNEUMOCOCCAL VACCINE 50+ (1 of 1 - PCV) 2008 ZOSTER VACCINE (1 of 2) 2008 COVID-19 VACCINE ( - 2023-2 5 season) 2024 DEPRESSION SCREENING 10/12/2024 INFLUENZA VACCINE (Season Ended) 2025 Respiratory Syncytial Virus (RSV) Vaccine Pt: or over 60 yrs (1 - 1-dose 75+ series) 2033 HEPATITIS B VACCINE Aged Out No longe r eligible based on patient's age to complete this topic HIB VACCINE Aged Out No longer eligi ble based on patient's age to complete this topic HPV VACCINE Aged Out No longer eligi ble based on patient's age to complete this topic MENINGOCOCCAL (Group B) VACC INE SHARED DECISION-MAKING Aged Out No longer eligibl e based on patient's age to complete this topic MENINGOCOCCAL GROUPS A/C/Y/W VACCINE Aged Out No longer eligible b ased on patient's age to complete this topic Care Teams White Hat Hacker Relationship Specialty Start Date End Date Basim Yip DO [address] [place] [address] [facility] - General 06/11/22
--- OUTSIDE RECORDS SUMMARY | 2025-02-01 08:35 | XMS_ITS | Encounter Summary ---
Author Organization [employer] Address [address] [facility] Attn: Epic Prelude ADT [place] [address] Care Team Providers Care Fuel Cell Test Engineer Name Role Phone Basim Yip DO Primary Care Provider [phone] Encounter Details Date Type Department Care Team (Late st Contact Info) Description 01/13/1997 Outpatient Historical Conversion, History Kris Galeas MD [address] [place] [address] Social History Tobacco Use Types Packs/Day Years Used Date Smoking Tobacco: Never Assessed Comments Unknown Sex and Gender Information Value Date Recorded Sex Assigned at Female 07/02/2024 9:51 AM CDT 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
--- OUTSIDE RECORDS SUMMARY | 2025-02-01 08:35 | XMS_ITS | Encounter Summary ---
Author Organization [facility] Address 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 Gender Identity Female 07/02/2024 9:51 AM CDT Sexual Orientation Asexual 07/02/2024 9: 51 AM CDT documented as of this encounter Plan of Treatment Not on file documented as of this encounter Procedures Procedure Name Priority Date/Time Associated Diagnosis Comments PATHOLOGY Routine 01/10/2008 5:00 PM CDT HELICOBACTER PYLORI RAPID UREASE TEST Routine 01/10/2008 4:58 PM CDT documented in this encounter Results * PATHOLOGY (01/10/2008 5:00 PM CDT) FINAL REPORT [address] [address] Patient: SEYMOURMIGUEL Jaylin : 1960 Procedure Date: 01/10/2008 Accession Date: 01/11/2008 Case No: [id number] Ordering Dr: NALLELY LEO Case types AW, BW, FW, NW and SH are performed by [facility], [place], [place] SURGICAL PATHOLOGY & NON-GYNECOLOGIC CYTOPATHOLOGY REPORT DIAGNOSIS STOMACH, ENDOSCOPIC BIOPSY: - NO PATHOLOGIC DIAGNOSIS. ESOPHAGUS, ENDOSCOPIC BIOPSY: - NO PATHOLOGIC DIAGNOSIS. Specimen Description: (1) Gastric biopsy; (2) esophageal biopsy. Operative Procedure: Esophagogastrodu odenoscopy. Patient Information/Histo ry/Diagnosis: (1) +/- Gastritis. Rule out malignancy. Is H. pylori present? (2) Rule out GERD/eosinophili c esophagitis. Gross: Received are two containers both labeled Miguel Chaudhari. Received in the first container labeled gastric biopsy are four mcintyre tissue fragments ranging from 0.2 to 0.3 cm in greatest dimension. The specimen is completely submitted labeled A1. Received in the second container labeled esophageal biopsy are three mcintyre tissue fragments ranging from 0.2 to 0.3 cm in greatest dimension. The specimen is completely submitted labeled B1. DJJu/JESUS 01.11.2008 11:06 am Microscopic: The slides are labeled [id number], Miguel Chaudhari. The gastric biopsy consists of unremarkable-appe aring fundic-type mucosa. There is no evidence of significant inflammation, reactive epithelial change, or atypia. No Helicobacter pylori are identified. The esophageal biopsy consists of unremarkable-appe aring squamous- surfaced mucosa. There is no evidence of squamous atypia, reactive epithelial change, inflammation, or goblet cell metaplasia. No eosinophils are present. F/[facility] 01.12.2008 10:48 am Staging Form: No. ELECTRONIC SIGNATURE FOR PAUL BUENO M.D.- 01/12/08 04:14 pm INTERFACE SYSTEM 01/10/2008 5:00 PM CDT Nallely Leo MD PATHOLOGY/CYTOLOGY ORDERABLES Final Result INTERFACE SYSTEM Refer to clinic/hospital department * HELICOBACTER PYLORI RAPID UREASE TEST (01/10/2008 4:58 PM CDT) FINAL REPORT LYDIA Test: Negative INTERFACE SYSTEM 01/10/2008 4:58 PM CDT 01/10/2008 5:15 PM CDT us Nallely Leo MD MICROBIOLOGY - GENERAL ORDERAB LES Final Result INTERFACE SYSTEM Refer to clinic/hospital department documented in this encounter Visit Diagnoses Not on filedocumented in this encounter Additional Health Concerns Infection Onset Date Last Indicated Resolved Time C Diff 05/03/2018 05/03/2018 02/25/2023 1:00 AM CDT documented as of this encounter Care Teams Material Requisitioner Relationship Specialty Start Date End Date Basim Yip DO [address] [facility] [address] [place] [address] PCP - General Internal Medicine 01/09/22 documented as of this encounter
--- OUTSIDE RECORDS SUMMARY | 2025-02-01 08:35 | XMS_ITS | Encounter Summary ---
Author Organization [facility] Address 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 [place] [address] [facility] [address] [address] Maxime Prakash Social History Tobacco Use Types Packs/Day Years Used Date Smoking Tobacco: Never Assessed Comments Unknown Sex and Gender Information Value Date Recorded Sex Assigned at Female 07/02/2024 9:51 AM CDT 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
--- OUTSIDE RECORDS SUMMARY | 2025-02-01 08:35 | XMS_ITS ---
Author Organization [employer] [place] ([address]) Address [address] [address] Care Team Providers Care Bookbinder Apprentice Name Role Phone Goyo Ryan Primary Care Provider UnavailLeslie Núñez Unavailable [phone] Ina Valdez Unavailable Unavailable Umer Moss Unavailable [phone] REASON FOR VISIT SCIT - Traditional Schedule Allergy Immunotherapy (Week ) Medications Medication SIG (Take, Route, Frequency, Duration) Notes Start Date End Date Status Xiidra 5 % 1 gtt in each eye 2 times a day Active Metoprolol Tartrate 25 MG 1 tab(s) orally 2 times a day for 30 day(s) Active FLUoxetine HCl 20 MG 1 tab(s) orally once a day for 30 day(s) Active Xanax 0.5 MG 1 tab(s) orally PRN Active Dicyclomine HCl 10 MG 2 cap(s) orally PRN Active Flonase Allergy Relief 50 MCG/ACT 2 spray(s) intranasally (avoid nasal septum) twice daily for 30 day(s) Active Montelukast Sodium 10 MG 1 tab(s) orally once a day Active hydroCHLOROthiazide 50 MG 1 tab(s) orally once a day Active Cetirizine HCl 10 MG 1 tab(s) orally once a day for 30 days Active Fluticasone Propionate 50 MCG/ACT 2 spray(s) in each nostril BID for 30 days Active NASAL WASHES N/A as directed intranasally as needed for 30 days Active EpiPen 2-Gabe 0.3 mg as directed intramuscularly once for 30 days Active SIT (Traditional) variable - see record per schedule subcutaneous per schedule for 999 days Active MONTELUKAST 10 mg 1 tab(s) orally once a day Active OLOPATADINE NASAL 665 mcg/inh 2 spray(s) intranasally 2 times a day for 30 days Active FLUTICASONE NASAL 50 mcg/inh 2 spray(s) in each nostril daily for 30 days As needed Active CETIRIZINE 10 mg 1 tab(s) orally once a day for 30 days Active OLOPATADINE NASAL 665 MCG/INH 2 SPRAY(S) INTRANASALLY 2 TIMES A DAY for 90 DAYS *Please review for potential replacement for e-prescription and drug interaction check* Active rOPINIRole HCl 0.25 MG 1 tab(s) orally 3 times a day for 30 day(s) Not-Taking Metoprolol Tartrate 25 MG 1 tab(s) orally 2 times a day for 30 day(s) Not-Taking Pantoprazole Sodium 40 MG 1 tab(s) orally once a day for 30 day(s) Active Atorvastatin Calcium 10 MG 1 tab(s) orally once a day for 30 day(s) Active Encounters Encounter Location Date Provider Diagnosis [facility] [address] [facility] [address] [place] [address] 12/21/2024 Umer Moss Allergic rhinitis du e to pollen J30.1 ; Other allergic rhinitis J30.89 ; Allergic rhinitis due to animal (cat) (dog) hair and dander J30.81 and Other chronic allergic conjunctivitis H10.45 Assessments Encounter Date Diagnosis (ICD Code) Assessment Notes Treatment Notes Treatment Clinical Notes Section Notes 12/21/2024 Allergic rhinitis due to pollen (ICD-10 - J30.1) 12/21/2024 Other allergic rhinitis (ICD-10 - J30.89) 12/21/2024 Allergic rhinitis due to animal (cat) (dog) hair and dander (ICD-10 - J30.81) 12/21/2024 Other chronic allergic conjunctivitis (ICD-10 - H10.45) Plan Of Treatment Next Appt Details Follow Up: As scheduled, Yorklyn son: Provider Name:Umer Moss , 02/15/2025 01:00:00 PM, [address] [facility], [address], [place], [address], Progress Notes * Miguel AHUJA MDOB:1960 ( 64 yo F)Acc No.[id number]:12/21/2024 SCIT-Aeroallergen Patient: Miguel BAEZ Provider: Patrice Moss MD :1960 A ge:64 Y S ex:Female Date:12/21/2024 Address:[address] [place] [address] , [facility] Pcp:Goyo Ryan Subjective: * Chief Complaints: [...] Hospitalization/Major Diagno stic Procedure: * Medications: T akingCETIRIZINE 10 mg tablet 1 tab(s) orally once [...] see record per schedule subcutaneous per schedule EpiPen 2-Gabe 0.3 mg kit as directed intramuscularly once Cetirizine HCl 10 MG Tablet 1 tab(s) [...] replacement for e-prescription and drug interaction check*Taking CETIRIZINE 10 mg tablet 1 tab(s) orally [...] per schedule subcutaneous per schedule Taking EpiPen 2-Gabe 0.3 mg kit as directed intramuscularly once Taking Cetirizine HCl 10 MG Tablet 1 [...] Information: * Visit Code: * Procedure Codes: 97754 IMMUNOTHERAPY INJECTIONS. * Sign off status: Completed true * Provider: Patrice Moss MD Date: 0 12/21/2024 Generated for [employer]/Jackie on: 0 02/01/2025 08:34 AM CDT History [...]
--- OUTSIDE RECORDS SUMMARY | 2025-02-01 08:35 | XMS_ITS | Encounter Summary ---
Author Organization [facility] Address 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
--- OUTSIDE RECORDS SUMMARY | 2025-02-01 08:35 | XMS_ITS | Encounter Summary ---
Author Organization [facility] Address 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
--- OUTSIDE RECORDS SUMMARY | 2025-02-01 08:35 | XMS_ITS | Encounter Summary ---
Author Organization [employer] Address 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
--- OUTSIDE RECORDS SUMMARY | 2025-02-01 08:35 | XMS_ITS | Encounter Summary ---
Author Organization [facility] Address 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
--- OUTSIDE RECORDS SUMMARY | 2025-02-01 08:35 | XMS_ITS | Encounter Summary ---
Author Organization [employer] Address 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 AM SHANK SCOURER Gender Identity Female 07/02/2024 9:51 AM CDT Sexual Orientation Asexual 07/02/2024 9: 51 AM CDT documented as of this encounter Plan of Treatment Not on file documented as of this encounter Procedures Procedure Name Priority Date/Time Associated Diagnosis Comments US ABDOMEN LIMITED Routine 11/24/2007 9: 29 AM SHANK SCOURER documented in this encounter Results * US ABDOMEN LIMITED (11/24/2007 9:29 AM SHANK SCOURER) Anatomical Region Laterality Modality Abdomen Other 11/24/2007 9:29 AM SHANK SCOURER Narrative 11/24/2007 10:10 AM SHANK SCOURER [address] [address] Admit Date: 11/24/2007 MIGUEL AHUJA Sex: F Admit Prov: NALLELY LEO Date: 1960 Primary Care Prov: DONY JIMENEZ CMRN: [id number] [id number] [facility] Ordering Prov: N/A Accession Number: [id number] Interpretation ULTRASOUND OF THE ABDOMEN LIMITED, 11/24/2007 History: Abdominal pain. Findings: Multiple transverse, longitudinal and oblique images of the right upper quadrant were obtained. The liver has a normal size, contour and echotexture. There is no duct dilatation, fluid collection or mass. The gallbladder appears normal without evidence of gallstones, gallbladder wall thickening or pericholecystic fluid. The common bile duct has a normal caliber and there is no evidence of intrahepatic ductal dilatation. There is no evidence of ascites or fluid in Palacios's pouch. Opinion: Normal right upper quadrant ultrasound. . Dictated by: MARIA LUZ MOSQUERA 11/24/2007 09:36 Electronically signed by: MARIA LUZ MOSQUERA 11/24/2007 10:10 Transcribed: 11/24/2007 09:37 [facility] Procedure Note Maria Luz Mosquera - 11/24/2007 [facility] [address] [place], [place] [address] Admit Date: 11/24/2007 MIGUEL AHUJA Sex: F Admit Prov: NALLELY LEO Date: 1960 Primary Care Prov: DONY JIMENEZ CMRN: [id number] [id number] IM[facility]ING SERVICES Ordering Prov: N/A Interpretation ULTRASOUND OF THE ABDOMEN LIMITED, 11/24/2007 History: Abdominal pain. Findings: Multiple transverse, longitudinal and oblique images of theright upper quadrant were obtained. The liver has a normal size, contourand echotexture. There is no duct dilatation, fluid collection ormass. The gallbladder appears normal without evidence of gallstones,gallbladder wall thickening or pericholecystic fluid. The common bile duct has anormal caliber and there is no evidence of intrahepatic ductal dilatation.There is no evidence of ascites or fluid in Palacios's pouch. Opinion: Normal right upper quadrant ultrasound. . Dictated by: MARIA LUZ MOSQUERA 11/24/2007 09:36 Electronically signed by: MARIA LUZ MOSQUERA 11/24/2007 10:10 Transcribed: 11/24/2007 09:37 [facility] Nallely Leo MD ORDERABLES Final Result documented in this encounter Visit Diagnoses Diagnosis Abdominal pain, unspecified site documented in this encounter Additional Health Concerns Infection Onset Date Last Indicated Resolved Time C Diff 05/03/2018 05/03/2018 02/25/2023 1:00 AM CDT documented as of this encounter Care Teams Retail Banking Manager Relationship Specialty Start Date End Date Basim Yip DO [address] [facility] [address] [facility] [address] [place] [address] PCP - General Internal Medicine 01/09/22 documented as of this encounter
--- OUTSIDE RECORDS SUMMARY | 2025-02-01 08:35 | XMS_ITS | Encounter Summary ---
Author Organization [facility] Address [address] [facility] Attn: Epic Prelude ADT NEHA GRAY [address] Care Team Providers Care Technology Services Manager Name Role Phone Basim Yip DO Primary Care Provider [phone] Encounter Details Date Type Department Care Team (Late st Contact Info) Description 07/20/1996 Outpatient Historical [facility] Social History Tobacco Use Types Packs/Day Years Used Date Smoking Tobacco: Never Assessed Comments Unknown Sex and Gender Information Value Date Recorded Sex Assigned at Female 07/02/2024 9:51 AM CDT Legal Sex Female 4:46 AM PONDMAN Gender Identity Female 07/02/2024 9:51 AM CDT [...] documented as of this encounter Care Teams Technology Services Manager Relationship Specialty Start Date End Date Basim Yip DO [address] [facility] [address] [place] [address] PCP - General Internal Medicine 01/09/22 documented as of this encounter
--- OUTSIDE RECORDS SUMMARY | 2025-02-01 08:35 | XMS_ITS | Encounter Summary ---
Author Organization [facility] Address [address] [place] [address] Care Team Providers Care Patient Ambassador Name Role Phone Basim Yip DO Primary Care Provider Encounter Details Date Type Department Care Team (Late st Contact Info) Description 05/05/2001 Outpatient Historical [facility] SHEET METAL PATTERN CUTTER - Medical [place] [address] 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
== END 2025-02-01 08:16 | disposition home or self-care (01) ==
PROVIDERS: PCP Nurse Practitioner; Visit Provider Nurse Practitioner
DX: R10.11 Right upper quadrant pain (principal)
CPT/HCPCS: 78227; A9537; J2805

== ENCOUNTER 2025-05-29 13:09 | Outpatient (CLI) | payer BC, SELFPAY ==
--- NOTE | ~2025-05-29 | DEXA_ITS ---
Bone Density Report Name: GODWIN AHUJA Age: 64 Sex: Female Ethnicity: White Date of : 1960 Indication: postmenopausal; screening for osteoporosis; inflammatory bowel disease; Referring Provider: ELYSE PATTEN Study: Bone densitometry was performed. Exam Date: May 29, 2025 Accession number: [id number] Bone Density: Region BMD T-score Z-score Classification AP Spine(L1-L4) 0.961 -0.8 1.1 Normal Femoral Neck (Left) 0.774 -0.7 0.9 Normal Total Hip (Left) 0.981 0.3 1.6 Normal Femoral Neck (Right) 0.730 -1.1 0.5 Osteopenia Total Hip (Right) 0.957 0.1 1.4 Normal Total Hip Mean 0.969 0.2 1.5 Normal World Health Organization criteria for BMD impression classify patients as: Normal (T-score at or above -1.0), Osteopenia (T-score between -1.0 and -2.5), or Osteoporosis (T-score at or below -2.5). 10-year Fracture Risk(1): Major Osteoporotic Fracture 8.3% Hip Fracture 0.7% Reported Risk Factors: [place] (), Neck BMD=0.730, BMI=28.7 (1) FRAX(R) Version 3.08. Fracture probability calculated for an untreated patient. Fracture probability may be lower if the patient has received treatment. Clinical Information Provided by Patient: Has used the following medications: Vitamin D, Calcium Has the following medical conditions: Inflammatory bowel diseases Patient maximum height was 63 Menopause Age: 53 Drinks caffeinated beverages Onset of menses at age 13 Number of children 2 Impression: The patient has low bone mass, based on the Right Femoral Neck T-score. The patient has an estimated ten-year risk of hip fracture of 0.7% and an estimated ten-year risk of major fracture of 8.3%, based on the WHO FRAX algorithm. Discussion: BONE DENSITY IS LOW AT ONE OR MORE SKELETAL SITES. This patient's lowest T-score is low at one or more skeletal sites. It meets the World Health Organization's (WHO) criteria for ?low bone mass? (T-score between -1.0 and -2.5). The patient's 10-year risk of fracture as calculated by FRAX is less than the threshold where pharmacological therapy is recommended by the National Osteoporosis Foundation (NOF). However, all treatment decisions require clinical judgment and consideration of individual patient factors, including patient preferences, comorbidities, previous drug use, risk factors not captured in the FRAX model (e.g., frailty, falls, vitamin D deficiency, increased bone turnover, interval significant decline in bone density) and possible under or overestimation of fracture risk by FRAX. The patient should follow a healthful lifestyle (good nutrition with adequate calcium and vitamin D, and appropriate weight-bearing exercise). Follow-Up: Consider repeating this study in 2 to 3 years to reassess this patient's status, or sooner if there is some new clinical indication. Reported by: ISIS on 05/29/2025 2:07:00 PM. Reviewed, dictated and finalized at location A.
== END 2025-05-29 13:10 | disposition home or self-care (01) ==
LOC: MICIMG 13:10
PROVIDERS: PCP Nurse Practitioner; Visit Provider Nurse Practitioner
DX: M85.88 Other specified disorders of bone density and structure, other site (principal); Z78.0 Asymptomatic menopausal state; Z13.820 Encounter for screening for osteoporosis
CPT/HCPCS: 77080